=== PATIENT | female | born 1970 | race African-American/Black ===

== ENCOUNTER 2016-11-01 18:26 | Emergency (ER) | payer BC, OTHER ==
--- NOTE | 2016-11-01 19:02 | ER Document Report ---
ED Medical Screen (RME) - General Chief Complaint: Chest Pain Stated Complaint: CHEST PAIN Time Seen by Provider: 11/01/16 18:58 Notes: Patient presents with diffuse body aches and chills. Also has pain and left knee. Also shortness of breath and chest pain. Patient did state that she had a myocardial infarction approximately 1 year ago. No stenting was done but she has been on Plavix since then. She did travel to [place] and [facility] week ago. No previous history of DVT or pulmonary embolism. She has had no hemoptysis. On my evaluation patient's PERC score is 0. TRAVEL OUTSIDE OF THE U.[place]. IN LAST 30 DAYS: No - Related Data Allergies/Adverse Reactions: Penicillins Allergy (Verified 11/01/16 18:52) Past Medical History Pulmonary Medical History: Reports: Hx Asthma Renal/ Medical History: Denies: Hx Peritoneal Dialysis Past Surgical History: Reports: Hx Cardiac Surgery, Hx Section, Hx Oral Surgery, Hx Tubal Ligation - Immunizations Hx Diphtheria, Pertussis, Tetanus Vaccination: Yes Physical Exam - Vital signs Vitals: Temp Pulse Resp BP Pulse Ox 98.3 F 88 18 134/73 H 98 11/01/16 18:50 11/01/16 18:50 11/01/16 18:50 11/01/16 18:50 11/01/16 18:50 Course - Vital Signs Vital signs: Temp Pulse Resp BP Pulse Ox 98.3 F 88 18 134/73 H 98 11/01/16 18:50 11/01/16 18:50 11/01/16 18:50 11/01/16 18:50 11/01/16 18:50
[2016-11-01 19:45] LABS: ABSOLUTE EOSINOPHILS # (AUTO) 0.2 10^3/uL (0.0-0.6); ABSOLUTE LYMPHOCYTES (AUTO) 0.9 10^3/uL (0.5-4.7); ABSOLUTE MONOCYTES (AUTO) 0.2 10^3/uL (0.1-1.4); ABSOLUTE NEUT (AUTO) 2.9 10^3/uL (1.7-8.2); BASOPHILS % (AUTO) 0.5 % (0-2); EOSINOPHILS % (AUTO) 3.6 % (0-6); HEMATOCRIT 36.9 % (36.0-47.0); HEMOGLOBIN 12.5 g/dL (12.0-15.5); HGB HCT DIFFERENCE 0.6; LYMPHOCYTES % (AUTO) 21.9 % (13-45); MEAN CORPUSCULAR HEMOGLOBIN 31.7 pg (27.0-33.4); MEAN CORPUSCULAR VOLUME 93 fl (80-97); MONOCYTES % (AUTO) 5.2 % (3-13); RED BLOOD COUNT 3.95 10^6/uL (3.72-5.28); RED CELL DISTRIBUTION WIDTH 13.1 % (11.5-14.0); SEGMENTED NEUTROPHILS % (AUTO) 68.8 % (42-78); WHITE BLOOD COUNT 4.3 10^3/uL (4.0-10.5)
--- NOTE | 2016-11-01 19:56 | RADIOLOGY REPORT (SQ) ---
EXAM DESCRIPTION: CHEST PA/LAT COMPLETED DATE/TIME: 11/01/2016 7:33 pm REASON FOR STUDY: cp/chills/sob COMPARISON: December 2015 EXAM PARAMETERS: NUMBER OF VIEWS: two views TECHNIQUE: Digital Frontal and Lateral radiographic views of the chest acquired. RADIATION DOSE: NA LIMITATIONS: none FINDINGS: LUNGS AND PLEURA: No opacities, masses or pneumothorax. No pleural effusion. MEDIASTINUM AND HILAR STRUCTURES: No masses or contour abnormalities. HEART AND VASCULAR STRUCTURES: Heart normal size. No evidence for failure. BONES: No acute findings. HARDWARE: None in the chest. OTHER: No other significant finding. IMPRESSION: NO SIGNIFICANT RADIOGRAPHIC FINDING IN THE CHEST. TECHNICAL DOCUMENTATION: JOB ID: [id number] [employer]- All Rights Reserved
[2016-11-01 19:59] LABS: ALANINE AMINOTRANSFERASE 35 U/L (9-52); ALBUMIN 3.9 g/dL (3.5-5.0); ALKALINE PHOSPHATASE 92 U/L (38-126); ANION GAP 11 (5-19); ASPARTATE AMINO TRANSFERASE 24 U/L (14-36); BILIRUBIN,DIRECT 0.3 mg/dL (0.0-0.4); BILIRUBIN,TOTAL 0.4 mg/dL (0.2-1.3); BLOOD UREA NITROGEN 9 mg/dL (7-20); CARBON DIOXIDE 24 mmol/L (22-30); CHLORIDE 104 mmol/L (98-107); CREATININE RESULT 0.98 mg/dL (0.52-1.25); GLUCOSE 80 mg/dL (75-110); SODIUM 139.4 mmol/L (137-145)
[2016-11-01] MEDS ORDERED: ACETAMINOPHEN 325 MG TABLET PO ONE (22:00)
[2016-11-01] MEDS ORDERED: ONDANSETRON 4 MG TAB.RAPDIS PO ONE (22:00)
--- NOTE | 2016-11-01 22:02 | ER Document Report ---
ED General - General Chief Complaint: Chest Pain Stated Complaint: CHEST PAIN Time Seen by Provider: 11/01/16 18:58 Notes: Patient is a 46-year-old female who comes emergency department for chief complaint of chills and body aches since this morning. She also states that she feels like she was "taking deeper breaths" and had some discomfort in her upper chest/neck area which has resolved. She also states she felt helped some tightness in her left calf area yesterday but this has also resolved. She denies vomiting, diarrhea, abdominal pain, throat. She reports mild cough. She states that her granddaughter is sick with a fever and cough and that she sleeps with her. She denies smoking, she does have a past medical history of asthma and an NSTEMI last year. She has also had a tubal ligation. TRAVEL OUTSIDE OF THE [place].S. IN LAST 30 DAYS: No - Related Data Allergies/Adverse Reactions: Penicillins Allergy (Verified 11/01/16 18:52) Past Medical History - General Information source: Patient - Social History Smoking Status: Never Smoker Frequency of alcohol use: None Drug Abuse: None Lives with: Family Family History: DM, Hypertension, Thyroid Disfunction, Other - Patient's grandmother had heart disease and at 83. Patient's fater had congestive heart failure and at 55. Patient has suicidal ideation: No Patient has homicidal ideation: No Pulmonary Medical History: Reports: Hx Asthma Renal/ Medical History: Denies: Hx Peritoneal Dialysis Past Surgical History: Reports: Hx Cardiac Surgery, Hx Section, Hx Oral Surgery, Hx Tubal Ligation - Immunizations Hx Diphtheria, Pertussis, Tetanus Vaccination: Yes Review of Systems - Review of Systems Constitutional: See HPI EENT: No symptoms reported Cardiovascular: See HPI Respiratory: See HPI Gastrointestinal: No symptoms reported Genitourinary: No symptoms reported Female Genitourinary: No symptoms reported Musculoskeletal: See HPI Skin: No symptoms reported Hematologic/Lymphatic: No symptoms reported Neurological/Psychological: No symptoms reported Physical Exam - Vital signs Vitals: Temp Pulse Resp BP Pulse Ox 98.3 F 88 18 134/73 H 98 11/01/16 18:50 11/01/16 18:50 11/01/16 18:50 11/01/16 18:50 11/01/16 18:50 Interpretation: Normal - General General appearance: Appears well, Alert In distress: None - Patient wrapped tightly in a sheet, has occasional shivering but otherwise is in no distress - HEENT Head: Normocephalic, Atraumatic Eyes: Normal Conjunctiva: Normal Extraocular movements intact: Yes Eyelashes: Normal Pupils: PERRL Sinus: Normal Nasal: Normal Mouth/Lips: Normal Mucous membranes: Normal Pharynx: Normal Neck: Normal. No: Meningismus - Respiratory Respiratory status: No respiratory distress Chest status: Nontender Breath sounds: Normal Chest palpation: Normal - Cardiovascular Rhythm: Regular. No: Tachycardia Heart sounds: Normal auscultation, S1 appreciated, S2 appreciated Murmur: No - Abdominal Inspection: Normal Distension: No distension Bowel sounds: Normal Tenderness: Nontender. No: Tender, Guarding Organomegaly: No organomegaly - Back Back: Normal, Nontender. No: Tender, CVA tenderness - Extremities General upper extremity: Normal inspection, Nontender, Normal color, Normal ROM , Normal temperature General lower extremity: Normal inspection, Nontender, Normal color, Normal ROM , Normal temperature, Normal weight bearing. No: Edouard's sign - Neurological Neuro grossly intact: Yes Cognition: Normal Orientation: AAOx4 [place] Coma Scale Eye Opening: Spontaneous [place] Coma Scale Verbal: Oriented [place] Coma Scale Motor: Obeys Commands [place] Coma Scale Total: 15 Speech: Normal Cranial nerves: Normal Cerebellar coordination: Normal Motor strength normal: LUE, RUE, LLE, RLE Additional motor exam normals: Equal painter Sensory: Normal - Psychological Associated symptoms: Normal affect, Normal mood - Skin Skin Temperature: Warm Skin Moisture: Dry Skin Color: Normal Course - Re-evaluation Re-evalutation: Patient well-appearing on exam although she appears slightly under the weather with body aches and occasional chills. Nontoxic. Clear lungs, unremarkable vital signs. No nuchal rigidity. After Tylenol and Zofran patient no longer complaining of body aches or headache, she states she just feels tired. X-ray unremarkable, CBC, chemistry, cardiac enzymes negative. EKG with no concerning abnormalities. Workup and symptoms consistent with a viral illness. Patient is asking to leave. Patient also asks that if she worsens or continues to be sick if she can have an antibiotic. I did discuss this with patient, I did eventually agree to prescribe her something that if she continues to have symptoms, has worsening cough, that she can take the prescribed medication and follow-up with primary care, also discussed return precautions in detail. Very low suspicion of acute abnormality including pneumonia, ACS, meningitis, or pulmonary embolism. I discussed this with patient and family member, they state understanding and agreement. - Vital Signs Vital signs: Temp Pulse Resp BP Pulse Ox 99.4 F 83 18 107/54 L 97 11/01/16 23:15 11/01/16 23:15 11/01/16 23:15 11/01/16 23:15 11/01/16 23:15 - Laboratory Result Diagrams: 11/01/16 19:20 11/01/16 19:20 Discharge - Discharge Clinical Impression: Body aches, Chills Condition: Stable Disposition: HOME, SELF-CARE Additional Instructions: Your chest x-ray and workup did not show any concerning abnormalities. Your symptoms and exam are most consistent with a viral illness. As we discussed I recommend not taking the antibiotics for 2-3 days and not taking it at all if symptoms resolve. Rest, hydrate, take Tylenol or ibuprofen. Follow-up with primary care. Return to emergency department for any concerning or worsening symptoms including difficulty breathing, severe headache, etc. Prescriptions: Doxycycline Hyclate 100 mg PO BID #14 capsule Forms: Return to Work Referrals: STEFANO ELLISON MD [Primary Care Provider] - Follow up as needed
[2016-11-01 22:26] LABS: APPEARANCE,URINE CLEAR; BILIRUBIN,URINE NEGATIVE (NEGATIVE); GLUCOSE, URINE NEGATIVE (NEGATIVE); KETONES,URINE NEGATIVE (NEGATIVE); LEUKOCYTE ESTERASE,URINE NEGATIVE (NEGATIVE); NITRITE,URINE NEGATIVE (NEGATIVE); PROTEIN,URINE NEGATIVE (NEGATIVE); URINE SPECIFIC GRAVITY 1.012; UROBILINOGEN,URINE NEGATIVE mg/dL (<2.0)
[2016-11-01 23:51] VITALS: BP 107/54
--- NOTE | 2016-11-02 17:37 | EKG REPORT ---
SEVERITY:- NORMAL ECG - SINUS RHYTHM : Confirmed by: Concetta Mcclendon MD 02-Nov-2016 17:37:00
== END 2016-11-01 23:15 | disposition home or self-care (01) ==
LOC: ER 18:26
DX: R52 Pain, unspecified (principal); R68.83 Chills (without fever); R07.9 Chest pain, unspecified; M54.2 Cervicalgia
CPT/HCPCS: 93005; 99285; 36415; 85025; 81025; 80053; 81001; 84484; 71020; 93010; S0119

== ENCOUNTER → 2018-08-21 | Outpatient (CLI) | payer BC, OTHER ==
--- NOTE | 2018-08-21 14:51 | RADIOLOGY REPORT (SQ) ---
EXAM DESCRIPTION: VENOUS UNILATERAL UPPER COMPLETED DATE/TIME: 08/21/2018 2:40 pm REASON FOR STUDY: LUE SWELLING R78.89 FINDING OF OTH SUBSTANCES, NOT NORMALLY FOUND IN BLOO R22.32 LOCALIZED SWELLING, MASS AND LUMP, LEFT UPPER LIMB COMPARISON: None. TECHNIQUE: Dynamic and static sarmiento scale and color images acquired of the left arm venous system. Se lected spectral images acquired with additional compression and augmentation maneuvers. Images store d on PACS. LIMITATIONS: None. FINDINGS: LEFT INTERNAL JUGULAR VEIN: Normal phasicity, compression, augmentation. No visualized echogenic material on sarmiento scale. No defects on color images. Comparison opposite side normal. SUBCLAVIAN VEIN: Normal compression, augmentation. No visualized echogenic material on sarmiento scale. No defects on color images. AXILLARY VEIN: Normal compression, augmentation. No visualized echogenic material on sarmiento scale. No d efects on color images. BRACHIAL VEIN: Normal compression, augmentation. No visualized echogenic material on sarmiento scale. No d efects on color images. BASILIC VEIN: Normal compression, augmentation. No visualized echogenic material on sarmiento scale. No de fects on color images. CEPHALIC VEIN: Normal compression, augmentation. No visualized echogenic material on sarmiento scale. No d efects on color images. OTHER: No other significant finding. IMPRESSION: NO EVIDENCE DVT OR SVT LEFT ARM. TECHNICAL DOCUMENTATION: JOB ID: [id number] [employer]- All Rights Reserved Reading location - IP/workstation name: [email or web address]
== END ==
LOC: SP 13:47
PROVIDERS: ATTEND Internal Medicine
DX: M79.89 Other specified soft tissue disorders (principal)
CPT/HCPCS: 93971

== ENCOUNTER 2018-11-06 16:02 | Observation (INO) | payer OTHER ==
[2018-11-06] MEDS ORDERED: ASPIRIN 81 MG TABLET, CHEWABLE PO ONE (16:36)
--- NOTE | 2018-11-06 16:36 | ER Document Report ---
Addendum entered and electronically signed by LUIZ BELTRAN PA-C 11/06/18 16:39: ED Medical Screen (RME) - General Chief Complaint: Chest Pain > 30 Stated Complaint: CHEST PAIN Time Seen by Provider: 11/06/18 16:37 Primary Care Provider: GABRIELA JETER [NO LOCAL MD] - Follow up as needed Notes: I have greeted and performed a rapid initial assessment of this patient. A comprehensive ED assessment and evaluation of the patient, analysis of test results and completion of medical decision making process will be conducted by an additional ED providers. TRAVEL OUTSIDE OF THE [place]. IN LAST 30 DAYS: No - Related Data Allergies/Adverse Reactions: Penicillins Allergy (Verified 11/06/18 16:08) Original Note: ED Medical Screen (RME) - General Chief Complaint: Chest Pain > 30 Stated Complaint: CHEST PAIN Primary Care Provider: GABRIELA JETER [Primary Care Provider] - Follow up as needed Notes: 48-year-old female with history of non-STEMI in December 2015 who received catheterization with no stent placement presents to the emergency department with chief complaint of chest pain and tightness that started yesterday. She had associated nausea and diaphoresis last night but decided not to come to the emergency department. She went to work today and has had persistent chest pain described as tightness/heaviness with dyspnea on exertion and that prompted her to get seen. Symptoms are similar to her previous ACS but not as severe. Pain radiates in between her shoulder blades and is constant and currently present. Patient takes ASA 81 mg, last dose this morning and is no longer taking Plavix. 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 TRAVEL OUTSIDE OF THE [place]. IN LAST 30 DAYS: No - Related Data Allergies/Adverse Reactions: Penicillins Allergy (Verified 11/06/18 16:08) Past Medical History - Social History Chew tobacco use (# tins/day): No Frequency of alcohol use: None Drug Abuse: None - Past Medical History Cardiac Medical History: Reports: Hx Heart Attack - 12/19/2015, Hx Hypercholesterolemia, Hx Hypertension Pulmonary Medical History: Reports: Hx Asthma Renal/ Medical History: Denies: Hx Peritoneal Dialysis Past Surgical History: Reports: Hx Cardiac Surgery, Hx Section, Hx Oral Surgery, Hx Tubal Ligation, Other - facial plastic surgery - Immunizations Hx Diphtheria, Pertussis, Tetanus Vaccination: Yes Physical Exam - Vital signs Vitals: Temp Pulse Resp BP Pulse Ox 98.3 F 84 16 122/78 100 11/06/18 16:20 11/06/18 16:20 11/06/18 16:20 11/06/18 16:20 11/06/18 16:20 - Notes Notes: PHYSICAL EXAMINATION: Reviewed vital signs and charting by RN GENERAL: Alert, interacts well. No acute distress. HEAD: Normocephalic, atraumatic. EYES: Pupils equal and round. Extraocular movements intact. ENT: Oral mucosa moist, tongue midline. NECK: Full range of motion. Trachea midline. LUNGS: Clear to auscultation bilaterally, no wheezes, rales, or rhonchi. No respiratory distress. HEART: Regular rate and rhythm. No murmur ABDOMEN: Deferred in triage EXTREMITIES: Moves all 4 extremities spontaneously. No edema, No cyanosis. PSYCH: Normal affect, normal mood. SKIN: Warm, dry, normal turgor. No rashes or lesions noted. Course - Vital Signs Vital signs: Temp Pulse Resp BP Pulse Ox 98.3 F 84 16 122/78 100 11/06/18 16:20 11/06/18 16:20 11/06/18 16:20 11/06/18 16:20 11/06/18 16:20 Doctor's Discharge - Discharge Referrals: LOCALMD,NO [Primary Care Provider] - Follow up as needed
[2018-11-06 17:16] LABS: ABSOLUTE BASOPHILS # (AUTO) 0.1 10^3/uL (0.0-0.2); ABSOLUTE EOSINOPHILS # (AUTO) 0.2 10^3/uL (0.0-0.6); ABSOLUTE LYMPHOCYTES (AUTO) 2.3 10^3/uL (0.5-4.7); ABSOLUTE MONOCYTES (AUTO) 0.5 10^3/uL (0.1-1.4); ABSOLUTE NEUT (AUTO) 2.4 10^3/uL (1.7-8.2); EOSINOPHILS % (AUTO) 4.3 % (0-6); HEMATOCRIT 37.5 % (36.0-47.0); HEMOGLOBIN 12.5 g/dL (12.0-15.5); LYMPHOCYTES % (AUTO) 42.2 % (13-45); MEAN CORPUSCULAR HEMOGLOBIN 31.1 pg (27.0-33.4); MEAN CORPUSCULAR HGB CONC 33.4 g/dL (32.0-36.0); MEAN CORPUSCULAR VOLUME 93 fl (80-97); MONOCYTES % (AUTO) 8.7 % (3-13); PLATELET COUNT 266 10^3/uL (150-450); RED BLOOD COUNT 4.03 10^6/uL (3.72-5.28); RED CELL DISTRIBUTION WIDTH 13.3 % (11.5-14.0); SEGMENTED NEUTROPHILS % (AUTO) 43.8 % (42-78); TOTAL CELLS COUNTED % (AUTO) 100 %; WHITE BLOOD COUNT 5.4 10^3/uL (4.0-10.5)
--- NOTE | 2018-11-06 17:18 | RADIOLOGY REPORT (SQ) ---
EXAM DESCRIPTION: CHEST 2 VIEWS COMPLETED DATE/TIME: 11/06/2018 5:07 pm REASON FOR STUDY: Chest pain/dyspnea on exertion COMPARISON: 11/01/2016 EXAM PARAMETERS: NUMBER OF VIEWS: two views TECHNIQUE: Digital Frontal and Lateral radiographic views of the chest acquired. RADIATION DOSE: NA LIMITATIONS: none FINDINGS: LUNGS AND PLEURA: No opacities, masses or pneumothorax. No pleural effusion. MEDIASTINUM AND HILAR STRUCTURES: No masses or contour abnormalities. HEART AND VASCULAR STRUCTURES: Heart normal size. No evidence for failure. BONES: No acute findings. HARDWARE: None in the chest. OTHER: No other significant finding. IMPRESSION: 1. No significant interval changes since the prior examination dated 11/01/2016. No acu te findings. TECHNICAL DOCUMENTATION: JOB ID: [id number] [employer]- All Rights Reserved Reading location - IP/workstation name: [email or web address]
[2018-11-06 17:33] LABS: ALANINE AMINOTRANSFERASE 33 U/L (9-52); ALBUMIN 4.2 g/dL (3.5-5.0); ALKALINE PHOSPHATASE 102 U/L (38-126); ANION GAP 8 (5-19); ASPARTATE AMINO TRANSFERASE 28 U/L (14-36); BILIRUBIN,DIRECT 0.2 mg/dL (0.0-0.4); BILIRUBIN,TOTAL 0.3 mg/dL (0.2-1.3); BLOOD UREA NITROGEN 11 mg/dL (7-20); CALCIUM 9.2 mg/dL (8.4-10.2); CARBON DIOXIDE 30 mmol/L (22-30); CHLORIDE 103 mmol/L (98-107); GLUCOSE 88 mg/dL (75-110); POTASSIUM 4.1 mmol/L (3.6-5.0); TOTAL PROTEIN 7.8 g/dL (6.3-8.2)
--- NOTE | 2018-11-06 17:40 | ER Document Report ---
ED General - General Mode of Arrival: Ambulatory Information source: Patient TRAVEL OUTSIDE OF THE U.S. IN LAST 30 DAYS: No - HPI Onset: Yesterday Onset/Duration: Sudden, Waxing and waning Quality of pain: No pain, Sharp, Other - heavy Associated symptoms: Nausea, Shortness of breath Exacerbated by: Denies Relieved by: Denies Similar symptoms previously: Yes Recently seen / treated by doctor: No <BILLY MACIAS - Last Filed: 11/06/18 20:04> <ANYA HUNT - Last Filed: 11/07/18 06:34> - General Chief Complaint: Chest Pain > 30 Stated Complaint: CHEST PAIN Time Seen by Provider: 11/06/18 16:37 Notes: This 48-year female presents emergency department with reports that she has some chest pain that was midsternal radiating to her back down her left arm making her left hand numb. She reports symptoms started last night when she was just sitting there. She reports she did become short of breath and some nausea. She reports she woke up she had been sweating in her sleep. Patient reports today when she was at work she became increasing tired and she was very sweaty. She also reports intermittent periods of chest pain that are sharp and alternating with heaviness that comes and goes. 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 Patient has a history of cardiac disease reports she had a ME in 2016. Her industrial rehabilitation consultant is [place] primary care providers at [facility]. She denies fever or diarrhea. 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 Patient's fater had congestive heart failure and at 55. Patient has suicidal ideation: No Patient has homicidal ideation: No - Past Medical History Cardiac Medical History: Reports: Hx Heart Attack - 12/19/2015, Hx Hy percholesterolemia, Hx Hypertension Pulmonary Medical History: Reports: Hx Asthma Renal/ Medical History: Denies: Hx Peritoneal Dialysis Musculoskeletal Medical History: Reports Other - Carpal tunnel Past Surgical History: Reports: Hx Cardiac Surgery, Hx Section, Hx Oral Surgery, Hx Tubal Ligation, Other - facial plastic surgery - Immunizations Hx Diphtheria, Pertussis, Tetanus Vaccination: Yes <BILLY MACIAS - Last Filed: 11/06/18 20:04> Review of Systems <BILLY MACIAS - Last Filed: 11/06/18 20:04> - Review of Systems Notes: Review HPI for review of systems., All other systems negative (BILLY MACIAS) Physical Exam - General General appearance: Appears well, Alert In distress: None - HEENT Head: Normocephalic, Atraumatic Eyes: Normal Conjunctiva: Normal Neck: Normal, Supple. No: Posterior cervical chain, Lymphadenopathy - Respiratory Respiratory status: No respiratory distress Chest status: Nontender Breath sounds: Normal Chest palpation: Normal - Cardiovascular Rhythm: Regular Heart sounds: Normal auscultation Murmur: No - Abdominal Inspection: Normal Distension: No distension Bowel sounds: Normal Tenderness: Nontender Organomegaly: No organomegaly - Back Back: Normal, Nontender - Extremities General upper extremity: Normal ROM General lower extremity: Normal ROM - Neurological Neuro grossly intact: Yes Cognition: Normal Orientation: AAOx4 [place] Coma Scale Eye Opening: Spontaneous [place] Coma Scale Verbal: Oriented [place] Coma Scale Motor: Obeys Commands [place] Coma Scale Total: 15 Speech: Normal Sensory: Normal - Psychological Associated symptoms: Normal affect, Normal mood - Skin Skin Temperature: Warm Skin Moisture: Dry Skin Color: Normal <BILLY MACIAS - Last Filed: 11/06/18 20:04> - Vital signs Vitals: Temp Pulse Resp BP Pulse Ox 98.3 F 84 16 122/78 100 11/06/18 16:20 11/06/18 16:20 11/06/18 16:20 11/06/18 16:20 11/06/18 16:20 Course - Laboratory Result Diagrams: 11/06/18 16:57 11/06/18 16:57 - Diagnostic Test Radiology reviewed: Image reviewed, Reports reviewed - EKG Interpretation by Me EKG shows normal: Sinus rhythm Rate: Normal <BILLY MACIAS - Last Filed: 11/06/18 20:04> - Laboratory Result Diagrams: 11/06/18 16:57 11/06/18 16:57 <ANYA HUNT - Last Filed: 11/07/18 06:34> - Re-evaluation Re-evalutation: 11/06/18 19:12 This 48-year-old -[place] female with history of cardiac disease and ME presents today with reports of chest pain midsternal that radiated to her back. Ports that occurred while she was just sitting there last night. Today while she was at work as a digital computer operator at [id number] she noticed she was increased tired and she was sweating. She reports sharp chest pain radiates to her back with a heaviness feeling that comes and goes. Reports she felt a little bit nauseated last night and some shortness of breath. She denies fever diarrhea or trauma. She denies coughing. Denies chest pain at this time and she was informed if she stood started experience chest pain she is to it the call campuzano so we can get another EKG. She verbalized understanding. Patient reports she did have a cardiac cath done after she had her ME in 2015. She had a recent stress test done in May 2018 which was normal. 11/06/18 19:16 First Set of enzymes troponin negative. Chest x-ray negative. Will repeat second troponin at 1999. Patient denies chest pain. Chest X-Ray 11/06/18 16:36 IMPRESSION: 1. No significant interval changes since the prior examination dated 11/01/2016. No acute findings. 11/06/18 16:57 11/06/18 16:57 MCV 93 fl (80-97) 11/06/18 16:57 MCH 31.1 pg (27.0-33.4) 11/06/18 16:57 MCHC 33.4 g/dL (32.0-36.0) 11/06/18 16:57 RDW 13.3 % (11.5-14.0) 11/06/18 16:57 Seg Neutrophils % 43.8 % (42-78) 11/06/18 16:57 Lymphocytes % 42.2 % (13-45) 11/06/18 16:57 Monocytes % 8.7 % (3-13) 11/06/18 16:57 Eosinophils % 4.3 % (0-6) 11/06/18 16:57 Basophils % 1.0 % (0-2) 11/06/18 16:57 Absolute Neutrophils 2.4 10^3/uL (1.7-8.2) 11/06/18 16:57 Absolute Lymphocytes 2.3 10^3/uL (0.5-4.7) 11/06/18 16:57 Absolute Monocytes 0.5 10^3/uL (0.1-1.4) 11/06/18 16:57 Absolute Eosinophils 0.2 10^3/uL (0.0-0.6) 11/06/18 16:57 Absolute Basophils 0.1 10^3/uL (0.0-0.2) 11/06/18 16:57 Chloride 103 mmol/L (98-107) 11/06/18 16:57 Carbon Dioxide 30 mmol/L (22-30) 11/06/18 16:57 Anion Gap 8 (5-19) 11/06/18 16:57 Est GFR ( Amer) > 60 (>60) 11/06/18 16:57 Est GFR (Non-Af Amer) > 60 (>60) 11/06/18 16:57 Glucose 88 mg/dL (75-110) 11/06/18 16:57 Calcium 9.2 mg/dL (8.4-10.2) 11/06/18 16:57 Total Bilirubin 0.3 mg/dL (0.2-1.3) 11/06/18 16:57 AST 28 U/L (14-36) 11/06/18 16:57 ALT 33 U/L (9-52) 11/06/18 16:57 Alkaline Phosphatase 102 U/L (38-126) 11/06/18 16:57 Total Protein 7.8 g/dL (6.3-8.2) 11/06/18 16:57 Albumin 4.2 g/dL (3.5-5.0) 11/06/18 16:57 11/06/18 16:57 Troponin I < 0.012 11/06/18 19:25 Patient resting calmly with 2 visitors at her bedside. Denies chest pain. 11/06/18 20:04 Report given to Anya OCONNOR. Introduced to Anya. She still having chest pain nitro ordered. Anticipate transfer to [place] to the care of her industrial rehabilitation consultant Dr. Rosenberg. (BILLY MACIAS) 11/06/18 20:05 Received report from ELVIN Pa. We will follow-up on second troponin. Will order nitroglycerin to help with her chest pain since her chest pain returned. 11/06/18 21:20 Patient states that the nitro had been brought down her pain, but she still continues to have some pain. 11/06/18 21:46 I spoke with the transfer center at [facility] and they will give me a call back. 11/06/18 22:[address] Valencia from [facility]. She said that there are no beds at this time and is recommending she gets worked up here at [facility]. She also stated that the cast that was done in 2016 did not show any large vessel blockage. Dr. Valencia states that the patient is most likely having small vessel occlusions. I will contact Dr. Huntley. 11/06/18 22:[address] Huntley and he is asking me to consult Dr. Mcclendon. 11/06/18 22:[address] Mcclendon and I reassessed the patient. Patient's pain is not reproducible with palpation. He is recommending observation on the telemetry unit at this time. (ANYA HUNT) - Vital Signs Vital signs: Temp Pulse Resp BP Pulse Ox 97.7 F 63 20 115/60 96 11/07/18 03:06 11/07/18 03:06 11/07/18 03:06 11/07/18 03:06 11/07/18 03:06 - EKG Interpretation by Me Additional EKG results interpreted by me: 11/06/18 19:[address] elevation no T wave inversion (BILLY MACIAS) Discharge <BILLY MACIAS - Last Filed: 11/06/18 20:04> - Discharge Admitting Provider: Audi (Hospitalist) <ANYA HUNT - Last Filed: 11/07/18 06:34> - Discharge Clinical Impression: Chest pain Qualifiers: Chest pain type: unspecified Qualified Code(s): R07.9 - Chest pain, unspecified Condition: Stable Disposition: ADMITTED OBSERVATION
[2018-11-06 19:34] LABS: INTERNATIONAL RATION (INR) 0.96; PARTIAL THROMBOPLASTIN TIME 23.5 SEC (23.5-35.8); PROTHROMBIN TIME 12.8 SEC (11.4-15.4)
[2018-11-06] MEDS: NITROGLYCERIN 0.4 MG/TAB 25 TAB/BOTTLE SL PRN ×2 (20:10→20:15)
[2018-11-06] MEDS ORDERED: ACETAMINOPHEN 325 MG TABLET PO ONE (20:36)
[2018-11-06] MEDS ORDERED: ACETAMINOPHEN 325 MG TABLET PO PRN (22:55)
[2018-11-06] MEDS ORDERED: NITROGLYCERIN 0.4 MG/TAB 25 TAB/BOTTLE SL PRN (22:55)
[2018-11-06] MEDS ORDERED: LACTULOSE SYRUP 20 GM/30 ML UDCUP PO ONE (23:30)
[2018-11-06] MEDS ORDERED: AMLODIPINE BESYLATE 10 MG TABLET PO ONE (23:30)
[2018-11-06] MEDS ORDERED: ATORVASTATIN CALCIUM 40 MG TABLET PO ONE (23:30)
--- NOTE | 2018-11-07 05:12 | PDOC H&P ---
History of Present Illness Admission Date/PCP: 11/06/18 23:04 Patient complains of: Chest pain History of Present Illness: CRISTINA NUNEZ is a 48 year old female with a past medical history of hypertension, dyslipidemia, patient stated stress-induced non-ST elevation CT without coronary artery disease. Patient states most recent stress testing 05/2018 with normal result by tank farm gauger Dr. Rosenberg at [facility] in [place]. Nonetheless the patient presents with 2 days of sharp, intermittent, lasting 3 to 5 minutes, 3 out of 5 intensity, radiating to the back, Chest pain occurring while at rest associated with fatigue, nausea, shortness of breath and elen phoresis. Exacerbated by activity alleviated by rest and nitroglycerin. Work- up is unremarkable, patient's tank farm gauger recommends observation with serial cardiac enzymes. On exam patient denies recent change in medication regiment and is otherwise felt well. Patient has a reproducible anterior chest wall pain is the pain for which she seeks evaluation. Past Medical History Cardiac Medical History: Reports: Myocardial Infarction - 12/19/2015, Hyperlipid isac, Hypertension Pulmonary Medical History: Reports: Asthma Musculoskeltal Medical History: Reports: Other - Carpal tunnel Psychiatric Medical History: Denies: Depression, Tobacco Dependency Past Surgical History Past Surgical History: Reports: Section, Tubal Ligation, Other - facial plastic surgery Social History Information Source: Patient, Dr. Office Lives with: Family Smoking Status: Never Smoker Frequency of Alcohol Use: None Hx Recreational Drug Use: No Drugs: None Hx Prescription Drug Abuse: No - Advance Directive Resuscitation Status: Full Code Family History Family History: DM, Hypertension, Thyroid Disfunction, Other - Patient's grandmother had heart disease and at 83. Patient's fater had congestive heart failure and at 55. Parental Family History Reviewed: Yes Children Family History Reviewed: Yes Sibling(s) Family History Reviewed.: Yes Medication/Allergy Home Medications: Aspirin [Aspirin 81 mg Chewable Tablet] 81 mg PO DAILY 11/06/18 Atorvastatin Calcium [Lipitor 80 mg Tablet] 80 mg PO QHS 11/06/18 Cetirizine HCl [Zyrtec 10 mg Tablet] 1 tab PO DAILY 11/06/18 Metoprolol Tartrate [Lopressor 25 mg Tablet] 12.5 mg PO BID 11/06/18 Pantoprazole Sodium 40 mg PO DAILY 11/06/18 Allergies/Adverse Reactions: Penicillins Allergy (Verified 11/06/18 16:08) Review of Systems Constitutional: ABSENT: chills, fever(s), headache(s), weight gain, weight loss Eyes: ABSENT: visual disturbances Ears: ABSENT: hearing changes Cardiovascular: ABSENT: chest pain, dyspnea on exertion, edema, orthropnea, palpitations Respiratory: ABSENT: cough, hemoptysis Gastrointestinal: ABSENT: abdominal pain, constipation, diarrhea, hematemesis, hematochezia, nausea, vomiting Genitourinary: ABSENT: dysuria, hematuria Musculoskeletal: ABSENT: joint swelling Integumentary: ABSENT: rash, wounds Neurological: ABSENT: abnormal gait, abnormal speech, confusion, dizziness, focal weakness, syncope Psychiatric: ABSENT: anxiety, depression, homidical ideation, suicidal ideation Endocrine: ABSENT: cold intolerance, heat intolerance, polydipsia, polyuria Hematologic/Lymphatic: ABSENT: easy bleeding, easy bruising Physical Exam Vital Signs: Temp Pulse Resp BP Pulse Ox 97.7 F 63 20 115/60 96 11/07/18 03:06 11/07/18 03:06 11/07/18 03:06 11/07/18 03:06 11/07/18 03:06 Intake & Output 11/05/18 11/06/18 11/07/18 11:59 11:59 11:59 Weight 85.1 kg General appearance: PRESENT: no acute distress, cooperative, obese, well- developed, well-nourished Head exam: PRESENT: atraumatic, normocephalic Eye exam: PRESENT: conjunctiva pink, EOMI, PERRLA. ABSENT: scleral icterus Ear exam: PRESENT: normal external ear exam Mouth exam: PRESENT: moist, tongue midline Neck exam: ABSENT: carotid bruit, JVD, lymphadenopathy, thyromegaly Respiratory exam: PRESENT: clear to auscultation rivas. ABSENT: rales, rhonchi, wheezes Cardiovascular exam: PRESENT: RRR. ABSENT: diastolic murmur, rubs, systolic murmur Pulses: PRESENT: normal dorsalis pedis pul Vascular exam: PRESENT: normal capillary refill GI/Abdominal exam: PRESENT: normal bowel sounds, soft. ABSENT: distended, guarding, mass, organolmegaly, rebound, tenderness Torso Front/Back Image: 1 - Reproducible chest wall pain to palpation Rectal exam: PRESENT: deferred Extremities exam: PRESENT: full ROM. ABSENT: calf tenderness, clubbing, pedal edema Neurological exam: PRESENT: alert, awake, oriented to person, oriented to place, oriented to time, oriented to situation, CN II-XII grossly intact. ABSENT: motor sensory deficit Psychiatric exam: PRESENT: appropriate affect, normal mood. ABSENT: homicidal ideation, suicidal ideation Skin exam: PRESENT: dry, intact, warm. ABSENT: cyanosis, rash Results Laboratory Results: 11/06/18 16:57 11/06/18 16:57 11/06/18 11/06/18 16:57 16:57 WBC 5.4 RBC 4.03 Hgb 12.5 Hct 37.5 MCV 93 MCH 31.1 MCHC 33.4 RDW 13.3 Plt Count 266 Seg Neutrophils % 43.8 Lymphocytes % 42.2 Monocytes % 8.7 Eosinophils % 4.3 Basophils % 1.0 Absolute Neutrophils 2.4 Absolute Lymphocytes 2.3 Absolute Monocytes 0.5 Absolute Eosinophils 0.2 Absolute Basophils 0.1 Sodium 141.0 Potassium 4.1 Chloride 103 Carbon Dioxide 30 Anion Gap 8 BUN 11 Creatinine 0.92 Est GFR ( Amer) > 60 Est GFR (Non-Af Amer) > 60 Glucose 88 Calcium 9.2 Total Bilirubin 0.3 AST 28 ALT 33 Alkaline Phosphatase 102 Total Protein 7.8 Albumin 4.2 11/06/18 11/06/18 11/07/18 16:57 19:55 02:13 Troponin I < 0.012 < 0.012 < 0.012 Impressions: Chest X-Ray 11/06/18 16:36 IMPRESSION: 1. No significant interval changes since the prior examination dated 11/01/2016. No acute findings. Assessment and Plan - Diagnosis (1) Atypical chest pain Is this a current diagnosis for this admission?: Yes Plan: Atypical chest pain though the patient's pain is atypical there are multiple risk factors for coronary artery disease and subsequently will observe and evaluation of acute coronary syndrome versus coronary artery disease with anginal equivalents. Cardiac monitoring blood pressure Q6 hours ,TSH, lipid profile, serial cardiac enzymes and discussion with patient's tank farm gauger. Chest wall pain, symptomatic management Tylenol and rest. (2) Dyslipidemia Is this a current diagnosis for this admission?: Yes Plan: Lipitor ordered, follow-up lipid profile. - Time Time Spent with patient: 25-34 minutes
[2018-11-07] MEDS ORDERED: PANTOPRAZOLE SODIUM 40 MG TABLET.DR PO SCH (06:00)
[2018-11-07] MEDS ORDERED: AMLODIPINE BESYLATE 5 MG TABLET PO SCH (10:00)
[2018-11-07] MEDS ORDERED: ASPIRIN 81 MG TABLET, ENT COATED PO SCH (10:00)
[2018-11-07] MEDS ORDERED: METOPROLOL TARTRATE 25 MG TABLET PO SCH (10:00)
--- NOTE | 2018-11-07 11:06 | RADIOLOGY REPORT (SQ) ---
EXAM DESCRIPTION: U/S ABDOMEN COMPLETE W/O DOP COMPLETED DATE/TIME: 11/07/2018 10:49 am REASON FOR STUDY: assess for GB stones COMPARISON: None. TECHNIQUE: Dynamic and static grayscale images acquired of the abdomen and recorded on PACS. Additio nal selected color Doppler and spectral images recorded. Note: Study does not meet criteria for complete doppler/duplex scan LIMITATIONS: None. FINDINGS: PANCREAS: No masses. Visualized pancreatic duct normal caliber. LIVER: No masses. Echotexture normal. LIVER VASCULATURE: Normal directional flow of the main portal vein and hepatic veins. GALLBLADDER: No stones. Normal wall thickness. No pericholecystic fluid. ULTRASOUND-DETECTED BERNABE'S SIGN: Negative. INTRAHEPATIC DUCTS AND COMMON DUCT: CBD and intrahepatic ducts normal caliber. No filling defects. INFERIOR VENA CAVA: Normal flow. AORTA: No aneurysm. RIGHT KIDNEY: Normal size. Normal echogenicity. No solid or suspicious masses. No hydronephros is. No calcifications. LEFT KIDNEY: Normal size. Normal echogenicity. No solid or suspicious masses. No hydronephrosi s. No calcifications. There is a small cyst off the superior pole. Largest diameter is 2.2 cm. SPLEEN: Normal size. No solid masses. PERITONEAL AND PLEURAL SPACES: No ascites or effusions. OTHER: No other significant finding. IMPRESSION: Small left renal cyst. No other significant findings. TECHNICAL DOCUMENTATION: JOB ID: [id number] [employer]- All Rights Reserved Reading location - IP/workstation name: [email or web address]
[2018-11-07 13:03] LABS: FREE T3 4.25 pg/mL (2.77-5.27); FREE T4 (FREE THYROXINE) 1.13 ng/dL (0.78-2.19)
[2018-11-07 15:48] VITALS: BP 121/68
--- NOTE | 2018-11-07 17:47 | PDOC DISCHARGE SUMMARY ---
General - Admit/Disc Date/PCP Admission Date/Primary Care Provider: 11/06/18 23:04 Discharge Date: 11/07/18 - Discharge Diagnosis (1) Chest pain Is this a current diagnosis for this admission?: Yes (2) Dyslipidemia Is this a current diagnosis for this admission?: Yes (3) Asthma Is this a current diagnosis for this admission?: Yes - Additional Information Resuscitation Status: Full Code Discharge Diet: As Tolerated Discharge Activity: Activity As Tolerated, Balance Activity w/Rest Prescriptions: Amlodipine Besylate [Norvasc 5 mg Tablet] 5 mg PO DAILY #30 tablet Home Medications: Atorvastatin Calcium [Lipitor 80 mg Tablet] 80 mg PO QHS 11/06/18 Cetirizine HCl [Zyrtec 10 mg Tablet] 1 tab PO DAILYP PRN 11/06/18 Metoprolol Tartrate [Lopressor 25 mg Tablet] 12.5 mg PO BID 11/06/18 Pantoprazole Sodium 40 mg PO DAILY 11/06/18 Amlodipine Besylate [Norvasc 5 mg Tablet] 5 mg PO DAILY #30 tablet 11/07/18 Aspirin [Ecotrin 81 mg EC Tablet] 81 mg PO DAILY 11/07/18 History of Present Illness History of Present Illness: Admitting hospitalist's H&P: CRISTINA NUNEZ is a 48 year old female with a past medical history of hypertension, dyslipidemia, patient stated stress-induced non-ST elevation [place] without coronary artery disease. Patient states most recent stress testing 05/2018 with normal result by binder coverstitch Dr. Rosenberg at [facility] in [place]. Nonetheless the patient presents with 2 days of sharp, intermittent, lasting 3 to 5 minutes, 3 out of 5 intensity, radiating to the back, Chest pain occurring while at rest associated with fatigue, nausea, shortness of breath and diaphoresis. Exacerbated by activity alleviated by rest and nitroglycerin. Work-up is unremarkable, patient's binder coverstitch recommends observation with serial cardiac enzymes. On exam patient denies recent change in medication regiment and is otherwise felt well. Patient has a reproducible anterior chest wall pain is the pain for which she seeks evaluation. Hospital Course Hospital Course: This is a 58-year-old female who was admitted for chest pain. Patient had normal EKGs. Her troponins were cycled and were all negative x4. She had a complete normal cardiac cath in 2015. She had a recent stress testing in May which was also normal. Upon encounter, she has been chest pain-free. She says that the chest pain is midsternal and sharp. D-dimer was also checked and came back normal. Her chest x-ray was also normal. An abdominal ultrasound was also pursued to rule out hepatobiliary causes of chest pain and this came back unremarkable as well. Other differentials are Prinzmetal variant and GI causes. Will discharge patient on amlodipine. She is already on PPI. She will be also referred for outpatient GI appointment to pursue work-up for GI causes of her chest pain. She will also closely follow-up with her binder coverstitch. Physical Exam Vital Signs: Temp Pulse Resp BP Pulse Ox 97.9 F 82 18 121/68 94 11/07/18 15:45 11/07/18 15:45 11/07/18 15:45 11/07/18 15:45 11/07/18 15:45 Intake & Output 11/06/18 11/07/18 11/08/18 06:59 06:59 06:59 Intake Total 240 Output Total 0 Balance 0 240 Weight 187 lb 6.287 oz General appearance: PRESENT: no acute distress, well-developed, well-nourished Head exam: PRESENT: atraumatic, normocephalic Eye exam: PRESENT: conjunctiva pink, EOMI, PERRLA. ABSENT: scleral icterus Ear exam: PRESENT: normal external ear exam Mouth exam: PRESENT: moist, tongue midline Neck exam: ABSENT: carotid bruit, JVD, lymphadenopathy, thyromegaly Respiratory exam: PRESENT: clear to auscultation rivas. ABSENT: rales, rhonchi, wheezes Cardiovascular exam: PRESENT: RRR. ABSENT: diastolic murmur, rubs, systolic murmur Pulses: PRESENT: normal dorsalis pedis pul Vascular exam: PRESENT: normal capillary refill GI/Abdominal exam: PRESENT: normal bowel sounds, soft. ABSENT: distended, guarding, mass, organolmegaly, rebound, tenderness Rectal exam: PRESENT: deferred Extremities exam: PRESENT: full ROM. ABSENT: calf tenderness, clubbing, pedal edema Neurological exam: PRESENT: alert, awake, oriented to person, oriented to place, oriented to time, oriented to situation, CN II-XII grossly intact. ABSENT: motor sensory deficit Results Laboratory Results: 11/06/18 16:57 11/06/18 16:57 11/06/18 11/07/18 11/07/18 16:57 07:50 11:06 Sodium 141.0 Potassium 4.1 Chloride 103 Carbon Dioxide 30 Anion Gap 8 BUN 11 Creatinine 0.92 Est GFR ( Amer) > 60 Est GFR (Non-Af Amer) > 60 Glucose 88 Calcium 9.2 Total Bilirubin 0.3 AST 28 ALT 33 Alkaline Phosphatase 102 Total Protein 7.8 Albumin 4.2 TSH 6.18 H Free T4 1.13 Free T3 pg/mL 4.25 11/06/18 11/06/18 11/07/18 16:57 19:55 02:13 Troponin I < 0.012 < 0.012 < 0.012 11/07/18 11/07/18 07:50 13:48 Troponin I < 0.012 < 0.012 Impressions: Chest X-Ray 11/06/18 16:36 IMPRESSION: 1. No significant interval changes since the prior examination dated 11/01/2016. No acute findings. Abdomen Ultrasound 11/07/18 08:57 IMPRESSION: Small left renal cyst. No other significant findings. Qualifiers - * PATIENT BEING DISCHARGED WITH ANY OF THE FOLLOWING DIAGNOSIS: No Acute Heart Failure - Is this a Heart Failure Patient?: No LVEF < 40%?: No- if no continue to question #3 3. Anticoagulant therapy for permanect/persistent/paraoxysmal Afib or Aflutter: N/A
[2018-11-07] MEDS ORDERED: ATORVASTATIN CALCIUM 40 MG TABLET PO SCH (22:00)
--- NOTE | 2018-11-08 08:08 | EKG REPORT ---
SEVERITY:- NORMAL ECG - SINUS RHYTHM : Confirmed by: Concetta Mcclendon MD 07-Nov-2018 21:26:43
--- NOTE | 2018-11-08 09:37 | EKG REPORT ---
SEVERITY:- NORMAL ECG - SINUS RHYTHM : Confirmed by: Concetta Mcclendon MD 06-Nov-2018 20:20:30
== END 2018-11-07 16:20 | disposition home or self-care (01) ==
LOC: ER 16:02 → EH 23:04 → 3N 11-07 00:27
PROVIDERS: ADMIT Internal Medicine; ATTEND Internal Medicine
DX: R07.89 Other chest pain (principal); E78.5 Hyperlipidemia, unspecified; I10 Essential (primary) hypertension; J45.909 Unspecified asthma, uncomplicated; R11.0 Nausea; R06.02 Shortness of breath; R61 Generalized hyperhidrosis; R53.83 Other fatigue; R20.0 Anesthesia of skin; I25.2 Old myocardial infarction; Z79.82 Long term (current) use of aspirin; Z79.899 Other long term (current) drug therapy; Z82.49 Family history of ischemic heart disease and other diseases of the circulatory system
CPT/HCPCS: 93005; 99285; 36415 ×2; 84439; 84443; 85025; 85610; 85730; 80053; 84484 ×2; 84481; 83036; 85379; 71046; 76700; 93010; G0378 ×2; J3490 ×2

== ENCOUNTER 2018-12-19 06:42 | Observation (INO) | payer OTHER ==
[2018-12-19] MEDS ORDERED: ASPIRIN 81 MG TABLET, CHEWABLE PO ONE (07:04)
[2018-12-19 07:58] LABS: ABSOLUTE BASOPHILS # (AUTO) 0.1 10^3/uL (0.0-0.2); ABSOLUTE EOSINOPHILS # (AUTO) 0.3 10^3/uL (0.0-0.6); ABSOLUTE LYMPHOCYTES (AUTO) 1.8 10^3/uL (0.5-4.7); ABSOLUTE MONOCYTES (AUTO) 0.4 10^3/uL (0.1-1.4); ABSOLUTE NEUT (AUTO) 2.5 10^3/uL (1.7-8.2); BASOPHILS % (AUTO) 1.3 % (0-2); EOSINOPHILS % (AUTO) 5.6 % (0-6); HEMOGLOBIN 12.4 g/dL (12.0-15.5); LYMPHOCYTES % (AUTO) 35.2 % (13-45); MEAN CORPUSCULAR HEMOGLOBIN 31.3 pg (27.0-33.4); MEAN CORPUSCULAR HGB CONC 33.5 g/dL (32.0-36.0); MEAN CORPUSCULAR VOLUME 93 fl (80-97); MONOCYTES % (AUTO) 8.4 % (3-13); PLATELET COUNT 251 10^3/uL (150-450); RED BLOOD COUNT 3.96 10^6/uL (3.72-5.28); RED CELL DISTRIBUTION WIDTH 13.2 % (11.5-14.0); SEGMENTED NEUTROPHILS % (AUTO) 49.5 % (42-78); TOTAL CELLS COUNTED % (AUTO) 100 %; WHITE BLOOD COUNT 5.1 10^3/uL (4.0-10.5)
[2018-12-19 08:03] LABS: INTERNATIONAL RATION (INR) 0.99; PROTHROMBIN TIME 13.1 SEC (11.4-15.4)
[2018-12-19 08:20] LABS: ALBUMIN 3.9 g/dL (3.5-5.0); ALKALINE PHOSPHATASE 86 U/L (38-126); ANION GAP 8 (5-19); ASPARTATE AMINO TRANSFERASE 23 U/L (14-36); BILIRUBIN,DIRECT 0.1 mg/dL (0.0-0.4); BILIRUBIN,TOTAL 0.5 mg/dL (0.2-1.3); BLOOD UREA NITROGEN 12 mg/dL (7-20); CALCIUM 9.4 mg/dL (8.4-10.2); CARBON DIOXIDE 25 mmol/L (22-30); CHLORIDE 106 mmol/L (98-107); CREATINE KINASE 259 U/L (30-135); GLUCOSE 123 mg/dL (75-110); POTASSIUM 4.6 mmol/L (3.6-5.0); TOTAL PROTEIN 7.1 g/dL (6.3-8.2)
--- NOTE | 2018-12-19 08:27 | RADIOLOGY REPORT (SQ) ---
EXAM DESCRIPTION: CHEST 2 VIEWS COMPLETED DATE/TIME: 12/19/2018 7:24 am REASON FOR STUDY: CP COMPARISON: PA and lateral views of the chest from 11/06/2018. EXAM PARAMETERS: NUMBER OF VIEWS: two views TECHNIQUE: Digital Frontal and Lateral radiographic views of the chest acquired. RADIATION DOSE: NA LIMITATIONS: none FINDINGS: LUNGS AND PLEURA: No consolidation, pleural effusion or pneumothorax. MEDIASTINUM AND HILAR STRUCTURES: No mediastinal or hilar contour abnormality. HEART AND VASCULAR STRUCTURES: The cardiac silhouette and pulmonary vasculature are within normal zayas its. BONES: No acute findings. HARDWARE: None in the chest. OTHER: No other finding. IMPRESSION: No acute cardiopulmonary process. TECHNICAL DOCUMENTATION: JOB ID: [id number] [employer]- All Rights Reserved Reading location - IP/workstation name: [email or web address]
[2018-12-19 08:31] LABS: CREATINE KINASE MB 1.92 ng/mL (<4.55)
[2018-12-19 08:36] LABS: TROPONIN I 0.209 ng/mL
--- NOTE | 2018-12-19 09:24 | EKG REPORT ---
SEVERITY:- NORMAL ECG - SINUS RHYTHM : Confirmed by: Concetta Mcclendon MD 19-Dec-2018 09:24:04
[2018-12-19 10:10] LABS: APPEARANCE,URINE CLOUDY; BILIRUBIN,URINE NEGATIVE (NEGATIVE); COLOR,URINE YELLOW; GLUCOSE, URINE NEGATIVE (NEGATIVE); KETONES,URINE NEGATIVE (NEGATIVE); LEUKOCYTE ESTERASE,URINE LARGE (NEGATIVE); NITRITE,URINE NEGATIVE (NEGATIVE); PROTEIN,URINE NEGATIVE (NEGATIVE); URINE SPECIFIC GRAVITY 1.012; UROBILINOGEN,URINE NEGATIVE mg/dL (<2.0)
[2018-12-19] MEDS ORDERED: PROMETHAZINE HCL 25 MG TABLET PO PRN (10:34)
[2018-12-19] MEDS ORDERED: ACETAMINOPHEN 325 MG TABLET PO PRN (10:34)
[2018-12-19] MEDS ORDERED: ONDANSETRON 4 MG TAB.RAPDIS PO PRN (10:34)
--- NOTE | 2018-12-19 12:55 | ER Document Report ---
Entered by TRACEY MACDONALD SCRIBE 12/19/18 0746 Acting as scribe for:JOSE SIMMS DO ED Cardiac - General Chief Complaint: Chest Pain Stated Complaint: CHEST PAIN,NAUSEA Time Seen by Provider: 12/19/18 07:19 Mode of Arrival: Ambulatory Information source: Patient Notes: Patient is a 48 year old female with previous "stress based" OK in 2016 that presents to the emergency department today with complaints of chest pain which began last night. Patient states that she was at a football game and she walked to the parking lot, then walked back to the field and she developed chest pain during this walk that "lasted about 12 minutes". Patient states she had associated shortness of breath, nausea, and diaphoresis. Patient states when she got home from the game she took one nitroglycerin and went to bed. Patient states when putting on her shoes this morning she became short of breath so she decided to come in. Patient reports that she saw her copra processor on 12/06 and everything was fine at that time. Patient reports her catherization following the OK in 2016 was clean. TRAVEL OUTSIDE OF THE [place] IN LAST 30 DAYS: No - Related Data Allergies/Adverse Reactions: Penicillins Allergy (Verified 11/06/18 16:08) Past Medical History - General Information source: Patient - Social History Smoking Status: Never Smoker Cigarette use (# per day): No Lives with: Family Family History: Reviewed & Not Pertinent, DM, Hypertension, Thyroid Disfunction, Other - Patient's grandmother had heart disease and at 83. Patient's fater had congestive heart failure and at 55. - Past Medical History Cardiac Medical History: Reports: Hx Heart Attack - 12/19/2015 "stress related", Hx Hypercholesterolemia, Hx Hypertension Pulmonary Medical History: Reports: Hx Asthma Past Surgical History: Reports: Hx Cardiac Surgery, Hx Section, Hx Oral Surgery, Hx Tubal Ligation, Other - facial plastic surgery - Immunizations Hx Diphtheria, Pertussis, Tetanus Vaccination: Yes Hx Pneumococcal Vaccination: 01/09/16 Review of Systems - Review of Systems Constitutional: See HPI, Diaphoresis EENT: No symptoms reported Cardiovascular: See HPI, Chest pain, Heart racing Respiratory: See HPI, Short of breath Gastrointestinal: See HPI, Nausea Genitourinary: No symptoms reported Female Genitourinary: No symptoms reported Musculoskeletal: No symptoms reported Skin: No symptoms reported Hematologic/Lymphatic: No symptoms reported Neurological/Psychological: No symptoms reported -: Yes All other systems reviewed and negative Physical Exam - Vital signs Vitals: Temp Pulse Resp BP Pulse Ox 98.5 F 69 16 119/70 100 12/19/18 06:58 12/19/18 06:58 12/19/18 06:58 12/19/18 06:58 12/19/18 06:58 - Notes Notes: Physical Exam: General: Alert, appears well. HEENT: Normocephalic. Atraumatic. PERRL. Extraocular movements intact. Oropharynx clear. Neck: Supple. Non-tender. Respiratory: No respiratory distress. Clear and equal breath sounds bilaterally. Cardiovascular: Regular rate and rhythm. Abdominal: Normal Inspection. Non-tender. No distension. Normal Bowel Sounds. Back: No gross abnormalities. Extremities: Moves all four extremities. Upper extremities: Normal inspection. Normal ROM. Lower extremities: Normal inspection. No edema. Normal ROM. Neurological: Normal cognition. AAOx4. Normal speech. Psychological: Normal affect. Normal Mood. Skin: Warm. Dry. Normal color. Course - Re-evaluation Re-evalutation: 12/19/18 09:[address] King Patient is a 48-year-old female with a history of an STEMI in 2015. Patient is seen by Dr. Rosenberg, copra processor at [facility]. Patient comes in complaining of chest pain that she had yesterday. She had a clean cardiac cath in 2015. Patient had a stress test in June that was apparently normal. She saw her copra processor in November. Patient states that she is having difficulty breathing associated with this chest pain and some nausea. Patient took aspirin and nitroglycerin prior to arrival. No acute findings on EKG. Troponin is 0.2. Patient has not had ongoing chest pain. She was discussed with Dr. Robbins in [place]. Recommends admitting the patient here. She does not require transfer at this time. Patient is agreeable to this plan. She was discussed with the hospitalist service and will be admitted to telemetry. Stable at the time of admission. - Vital Signs Vital signs: Temp Pulse Resp BP Pulse Ox 98.5 F 69 19 115/87 H 100 12/19/18 06:58 12/19/18 06:58 12/19/18 11:52 12/19/18 11:52 12/19/18 11:52 - Laboratory Result Diagrams: 12/19/18 07:45 12/19/18 07:45 Laboratory results interpreted by me: 12/19/18 12/19/18 12/19/18 07:45 07:45 09:44 Glucose 123 H Creatine Kinase 259 H TSH 6.30 H Urine Blood SMALL H Ur Leukocyte Esterase LARGE H Discharge - Discharge Clinical Impression: NSTEMI (non-ST elevated myocardial infarction) Chest pain Qualifiers: Chest pain type: unspecified Qualified Code(s): R07.9 - Chest pain, unspecified Condition: Stable Disposition: ADMITTED INPATIENT Admitting Provider: Christine (Hospitalist) Unit Admitted: Telemetry I personally performed the services described in the documentation, reviewed and edited the documentation which was dictated to the scribe in my presence, and it accurately records my words and actions.
[2018-12-19] MEDS: METOPROLOL TARTRATE 25 MG TABLET PO SCH ×2 (13:09→22:22)
--- NOTE | 2018-12-19 15:57 | PDOC H&P ---
History of Present Illness Admission Date/PCP: 12/19/18 10:46 History of Present Illness: CRISTINA NUNEZ is a 48 year old female past medical history of hyperlipidemia, stress-induced cardiomyopathy, asthma, presented to ED complaining of chest pain. As per patient yesterday she was at a football game walk to the parking lot, when walking back to the field developed substernal, left-sided, pressure-like, chest pain, lasting about 10 to 12 minutes, radiating to her left arm, assoc iated with diaphoresis and nausea. When she got home she took 1 of her sublingual nitroglycerin, developed headache, went to bed. This morning when she woke up and was trying to put on her shoes she developed shortness of breath and decided to come to ED. Of note on 12/19/2015 patient presented to ED here at [facility] with troponins of 1.030, was transferred to [facility] where she underwent left heart cath and was told that her coronaries were normal and she had stress-induced cardiomyopathy likely Takotsubo. Academic Affairs Coordinator with Dr. Rosenberg last visit was on 12/06/2018 and she was told that everything was fine. In ED she was found to have mildly elevated troponins, ED physician had called anthropology and archeology instructor Dr. Robbins at at [facility] who had recommended for patient to be admitted here at [facility]. On my encounter patient is comfortably resting in bed, stating that her chest pain has resolved at this point, denies any recreational drug abuse. Also denying, denies any fever, chills, nausea, vomiting, diarrhea, constipation, urinary symptoms. Past Medical History Cardiac Medical History: Reports: Myocardial Infarction, Hyperlipidema Denies: Congestive Heart Failure, Hypertension Pulmonary Medical History: Reports: Bronchitis Denies: Asthma, Chronic Obstructive Pulmonary Disease (COPD), Pneumonia, Tuberculosis Neurological Medical History: Denies: Seizures Renal/ Medical History: Denies: End Stage Renal Disease GI Medical History: Denies: Cirrhosis, Gastroesophageal Reflux Disease Musculoskeltal Medical History: Reports: Arthritis Psychiatric Medical History: Denies: Bipolar Disorder, Depression Hematology: Denies: Anemia, Bleeding Tendencies Past Surgical History Past Surgical History: Reports: Section, Tubal Ligation, Other - facial plastic surgery Social History Lives with: Family Smoking Status: Never Smoker Frequency of Alcohol Use: None Hx Recreational Drug Use: No Drugs: None Hx Prescription Drug Abuse: No - Advance Directive Resuscitation Status: Full Code Family History Family History: Reviewed & Not Pertinent, DM, Hypertension, Thyroid Disfunction, Other - Patient's grandmother had heart disease and at 83. Patient's fater had congestive heart failure and at 55. Parental Family History Reviewed: Yes Children Family History Reviewed: Yes Sibling(s) Family History Reviewed.: Yes Medication/Allergy Home Medications: Albuterol Sulfate [Proair HFA Inhalation Aerosol 8.5 gm MDI] 1 puff IH Q6HP PRN 12/19/18 Aspirin [Adult Low Dose Aspirin EC] 81 mg PO DAILY 12/19/18 Atorvastatin Calcium [Lipitor 80 mg Tablet] 80 mg PO QHS 12/19/18 Cetirizine HCl [Zyrtec 10 mg Tablet] 10 mg PO DAILYP PRN 12/19/18 Metoprolol Tartrate [Lopressor 25 mg Tablet] 12.5 mg PO Q12 12/19/18 Pantoprazole Sodium [Protonix [address] Tablet] 40 mg PO QAM 12/19/18 Allergies/Adverse Reactions: Penicillins Allergy (Verified 11/06/18 16:08) Review of Systems Review of Systems: as per hpi Physical Exam Vital Signs: Temp Pulse Resp BP Pulse Ox 98.5 F 78 17 126/54 H 100 12/19/18 15:09 12/19/18 15:09 12/19/18 15:09 12/19/18 15:09 12/19/18 15:09 Intake & Output 12/18/18 12/19/18 12/20/18 06:59 06:59 06:59 Weight 89.7 kg General appearance: PRESENT: no acute distress, obese, well-developed, well- nourished Head exam: PRESENT: atraumatic, normocephalic Eye exam: PRESENT: conjunctiva pink, EOMI, PERRLA. ABSENT: scleral icterus Ear exam: PRESENT: normal external ear exam Mouth exam: PRESENT: moist, tongue midline Neck exam: ABSENT: carotid bruit, JVD, lymphadenopathy, thyromegaly Respiratory exam: PRESENT: clear to auscultation rivas. ABSENT: rales, rhonchi, wheezes Cardiovascular exam: PRESENT: RRR. ABSENT: diastolic murmur, rubs, systolic murmur Pulses: PRESENT: normal dorsalis pedis pul Vascular exam: PRESENT: normal capillary refill GI/Abdominal exam: PRESENT: normal bowel sounds, soft. ABSENT: distended, guarding, mass, organolmegaly, rebound, tenderness Rectal exam: PRESENT: deferred Extremities exam: PRESENT: full ROM. ABSENT: calf tenderness, clubbing, pedal edema Neurological exam: PRESENT: alert, awake, oriented to person, oriented to place, oriented to time, oriented to situation, CN II-XII grossly intact. ABSENT: motor sensory deficit Psychiatric exam: PRESENT: appropriate affect, normal mood. ABSENT: homicidal ideation, suicidal ideation Skin exam: PRESENT: dry, intact, warm. ABSENT: cyanosis, rash Results Laboratory Results: 12/19/18 07:45 12/19/18 07:45 12/19/18 12/19/18 12/19/18 07:45 07:45 07:45 WBC 5.1 RBC 3.96 Hgb 12.4 Hct 37.0 MCV 93 MCH 31.3 MCHC 33.5 RDW 13.2 Plt Count 251 Seg Neutrophils % 49.5 Sodium 139.1 Potassium 4.6 Chloride 106 Carbon Dioxide 25 Anion Gap 8 BUN 12 Creatinine 0.90 Est GFR ( Amer) > 60 Glucose 123 H Calcium 9.4 Total Bilirubin 0.5 AST 23 Alkaline Phosphatase 86 Total Protein 7.1 Albumin 3.9 TSH 6.30 H Urine Color Urine Appearance Urine pH Ur Specific Keene Urine Protein Urine Glucose (UA) Urine Ketones Urine Blood Urine Nitrite Ur Leukocyte Esterase Urine WBC (Auto) Urine RBC (Auto) 12/19/18 09:44 WBC RBC Hgb Hct MCV MCH MCHC RDW Plt Count Seg Neutrophils % Sodium Potassium Chloride Carbon Dioxide Anion Gap BUN Creatinine Est GFR ( Amer) Glucose Calcium Total Bilirubin AST Alkaline Phosphatase Total Protein Albumin TSH Urine Color YELLOW Urine Appearance CLOUDY Urine pH 6.0 Ur Specific Ke[place] 1.012 Urine Protein NEGATIVE Urine Glucose (UA) NEGATIVE Urine Ketones NEGATIVE Urine Blood SMALL H Urine Nitrite NEGATIVE Ur Leukocyte Esterase LARGE H Urine WBC (Auto) 14 Urine RBC (Auto) 43 12/19/18 12/19/18 12/19/18 07:45 07:45 11:55 Creatine Kinase 259 H CK-MB (CK-2) 1.92 Troponin I 0.209 0.192 Impressions: Chest X-Ray 12/19/18 07:04 IMPRESSION: No acute cardiopulmonary process. Assessment and Plan - Diagnosis (1) Chest pain, exertional Is this a current diagnosis for this admission?: Yes Plan: Mildly elevated troponin. Admit to telemetry. Started on aspirin, beta-blockers, high intensity statins, low molecular weight heparin, sublingual nitro, morphine, supplemental oxygen, trend troponins, 2D echo, consult cardiology. I have discussed the case with Dr. Mcclendon anthropology and archeology instructor who stated that he will see the patient tomorrow and will decide if patient will need a stress left heart cath. (2) Dyslipidemia Is this a current diagnosis for this admission?: Yes Plan: Continue high intensity statins. (3) Obesity (BMI 30-39.9) Is this a current diagnosis for this admission?: Yes Plan: BMI 35.0. Diet and lifestyle modification recommended. (4) UTI (urinary tract infection) Is this a current diagnosis for this admission?: Yes Plan: Likely due to gram-negative rods such as E. coli. UA positive for leukocyte esterase and WBC. Started on levofloxacin. Urine culture.
[2018-12-19] MEDS ORDERED: ALBUTEROL SULFATE HFA (90 MCG/PUFF) 200 PUFF/8.5 GM MDI IH PRN (16:07)
[2018-12-19] MEDS: NITROGLYCERIN 0.4 MG/TAB 25 TAB/BOTTLE SL PRN ×2 (16:42→21:00)
[2018-12-19] MEDS: MORPHINE SULFATE 10 MG/ML INJ IV PRN ×2 (16:43→20:58)
[2018-12-19 17:31] LABS: URINE AMPHETAMINES SCREEN NEGATIVE; URINE BARBITURATES SCREEN NEGATIVE; URINE BENZODIAZEPINES SCREEN NEGATIVE; URINE COCAINE SCREEN NEGATIVE; URINE MARIJUANA (THC) SCREEN NEGATIVE; URINE METHADONE SCREEN NEGATIVE
[2018-12-19 17:35] LABS: URINE PHENCYCLIDINE SCREEN NEGATIVE
--- NOTE | 2018-12-19 17:36 | RADIOLOGY REPORT (SQ) ---
EXAM DESCRIPTION: CTA CHEST COMPLETED DATE/TIME: 12/19/2018 5:21 pm REASON FOR STUDY: chest pain COMPARISON: 12/19/2015 TECHNIQUE: CT scan of the chest performed using helical scanning technique with dynamic intravenous contrast injection. Images reviewed with lung, soft tissue and bone windows. Reconstructed coronal and sagittal MPR images reviewed. Additional 3 dimensional post-processing performed to develop Maximal Intensity Projection images (CO P). All images stored on PACS. All CT scanners at this facility use dose modulation, iterative reconstruction, and/or weight based d osing when appropriate to reduce radiation dose to as low as reasonably achievable (ALARA). [facility]: Dose Right [facility]: CareDose [facility]: Dose Right [facility]: Teradose 4D [facility]: Mediasurface CONTRAST TYPE AND DOSE: contrast/concentration: Isovue 350.00 mg/ml; Total Contrast Delivered: 64.0 ml; Total Saline Delivered: 71.6 ml Contrast bolus adequate for pulmonary arteries and aorta. RENAL FUNCTION: GFR > 60. RADIATION DOSE: CT Rad equipment meets quality standard of care and radiation dose reduction techniq ues were employed. CTDIvol: 19.8 - 24.3 mGy. DLP: 850 mGy-cm. . LIMITATIONS: None. FINDINGS: LUNGS AND PLEURA: No masses, infiltrates, or pneumothorax. No pleural effusions or pleura l calcifications. AORTA AND GREAT VESSELS: No aneurysm. No dissection. HEART: No pericardial effusion. No significant coronary artery calcifications. PULMONARY ARTERIES: No emboli visualized in the main pulmonary arteries or the segmental branches. HILAR AND MEDIASTINAL STRUCTURES: No identified masses or abnormal nodes. HARDWARE: None in the chest. UPPER ABDOMEN: No acute findings. Limited exam. THYROID AND OTHER SOFT TISSUES: No masses. No adenopathy. BONES: No acute or significant finding. 3D MIPS: Confirm above findings. OTHER: No other significant finding. IMPRESSION: No acute findings. NO PULMONARY EMBOLI. COMMENT: Quality ID # [id number]: Final reports with documentation of one or more dose reduction techniques (e.g., Automated exposure control, adjustment of the mA and/or kV according to patient size, use of iterative reconstruction technique) TECHNICAL DOCUMENTATION: JOB ID: [id number] [place]-72 2010 [employer]- All Rights Reserved Reading location - IP/workstation name: [email or web address]
[2018-12-19] MEDS: FAMOTIDINE 20 MG TABLET PO SCH (17:46)
[2018-12-19] MEDS: LEVOFLOXACIN 500 MG TABLET PO SCH (17:47)
--- NOTE | 2018-12-19 20:49 | XCELERA REPORT ---
[address] [address] Transthoracic Echocardiogram Report Name: CRISTINA NUNEZ Age: 48 yrs Gender: Female : 1970 Patient Status: Inpatient Patient Location: [address] [place], [place] [address]A Study Date: 12/19/2018 01:25 PM Height: 63 in Weight: 197 lb BSA: 1.9 m2 Procedure: A two-dimensional transthoracic echocardiogram with color flow and Doppler was performed. The study was technically limited with all images being suboptimal in quality. Reason For Study: CHEST PAIN History: CHEST PAIN. Ordering Physician: FRANCE LONDON Performed By: Dorie Tavarez Interpretation Summary The left ventricle is normal in size. There is normal left ventricular wall thickness. The left ventricular ejection fraction is within normal limits. LV EF is 70% Doppler measurements suggest impaired left ventricular relaxation, which is associated with grade I/IV or mild diastolic dysfunction The left ventricular wall motion is normal. There is no thrombus. Cannot assess ASD,VSD , or PFO. The right ventricle is normal in size and function. The right atrium is normal. The left atrial size is normal. There is no evidence of mitral valve prolapse. There is no vegetation seen on the mitral valve. There is no mitral valve stenosis. There is a trace to mild amount of mitral regurgitation There is no aortic valvular vegetation. There is aortic sclerosis without aortic stenosis. No aortic regurgitation is present. There is no tricuspid stenosis. There is a trace amount of tricuspid regurgitation Right ventricular systolic pressure is at the upper limits of normal RVSP is 30 mm of Hg , with RA mean of 10. The aortic root is normal size. The inferior vena cava was not visualized There is no pericardial effusion. MMode/2D Measurements & Calculations RVDd: 3.0 cm LVIDd: 4.5 cm FS: 42.1 % Ao root diam: 2.5 cm IVSd: 0.81 cm LVIDs: 2.6 cm EDV(Teich): Ao root area: LVPWd: 0.95 cm 91.6 ml 5.0 cm2 ESV(Teich): 24.5 ml EF(Teich): 73.3 % EDV(MOD-sp4): SV(MOD-sp4): 92.8 ml 63.4 ml ESV(MOD-sp4): 29.4 ml EF(MOD-sp4): 68.3 % Doppler Measurements & Calculations MV E max demetrius: MV dec slope: Ao V2 max: LV V1 max P.4 cm/sec 142.1 cm/sec 3.6 mmHg MV A max demetrius: 348.7 cm/sec2 Ao max P.1 mmHgLV V1 max: 94.5 cm/sec MV dec time: 0.22 sec 94.2 cm/sec MV E/A: 0.83 PA V2 max: PI end-d demetrius: TR max demetrius: 111.2 cm/sec 68.7 cm/sec 224.2 cm/sec PA max P.9 mmHg TR max P.1 mmHg Left Ventricle The left ventricle is normal in size. There is normal left ventricular wall thickness. The left ventricular ejection fraction is within normal limits. LV EF is 70%. Doppler measurements suggest impaired left ventricular relaxation, which is associated with grade I/IV or mild diastolic dysfunction. The left ventricular wall motion is normal. There is no thrombus. Cannot assess ASD,VSD , or PFO. Right Ventricle The right ventricle is normal in size and function. Atria The right atrium is normal. The left atrial size is normal. Mitral Valve There is no evidence of mitral valve prolapse. There is no vegetation seen on the mitral valve. There is no mitral valve stenosis. There is a trace to mild amount of mitral regurgitation. Aortic Valve There is no aortic valvular vegetation. There is aortic sclerosis without aortic stenosis. There is no LVOT obstruction. No aortic regurgitation is present. Tricuspid Valve There is no tricuspid stenosis. There is a trace amount of tricuspid regurgitation. Right ventricular systolic pressure is at the upper limits of normal. RVSP is 30 mm of Hg , with RA mean of 10. Great Vessels The aortic root is normal size. The inferior vena cava was not visualized. Effusions There is no pericardial effusion. : FRANCE LONDON Lakshmi
[2018-12-19] MEDS: ENOXAPARIN SODIUM INJ 80 MG/0.8 ML DISP.SYRIN SUBCUT SCH (22:22)
[2018-12-19] MEDS: ATORVASTATIN CALCIUM 80 MG TABLET PO SCH (22:22)
[2018-12-20] MEDS: NITROGLYCERIN 0.4 MG/TAB 25 TAB/BOTTLE SL PRN ×2 (08:06→09:07)
[2018-12-20] MEDS: MORPHINE SULFATE 10 MG/ML INJ IV PRN (08:06)
[2018-12-20] MEDS: ASPIRIN 81 MG TABLET, CHEWABLE PO SCH (09:03)
[2018-12-20] MEDS: ENOXAPARIN SODIUM INJ 80 MG/0.8 ML DISP.SYRIN SUBCUT SCH ×2 (09:03→21:10)
[2018-12-20] MEDS: METOPROLOL TARTRATE 25 MG TABLET PO SCH ×2 (09:03→21:10)
[2018-12-20] MEDS: FAMOTIDINE 20 MG TABLET PO SCH ×2 (09:04→17:58)
--- NOTE | 2018-12-20 09:33 | EKG REPORT ---
SEVERITY:- NORMAL ECG - SINUS RHYTHM : Confirmed by: Concetta Mcclendon MD 20-Dec-2018 09:32:14
[2018-12-20 11:41] LABS: FREE T3 3.41 pg/mL (2.77-5.27); FREE T4 (FREE THYROXINE) 1.29 ng/dL (0.78-2.19)
--- NOTE | 2018-12-20 17:46 | PDOC PROGRESS REPORT ---
Subjective Progress Note for:: 12/20/18 Subjective:: CRISTINA NUNEZ is a 48 year old female past medical history of hy perlipidemia, stress-induced cardiomyopathy, asthma, presented to ED complaining of chest pain. As per patient yesterday she was at a football game walk to the parking lot, when walking back to the field developed substernal, left-sided, pressure-like, chest pain, lasting about 10 to 12 minutes, radiating to her left arm, associated with diaphoresis and nausea. When she got home she took 1 of her sublingual nitroglycerin, developed headache, went to bed. This morning when she woke up and was trying to put on her shoes she developed shortness of breath and decided to come to ED. Of note on 12/19/2015 patient presented to ED here at [facility] with troponins of 1.030, was transferred to [facility] where she underwent left heart cath and was told that her coronaries were normal and she had stress-induced cardiomyopathy likely Takotsubo. Plastic Installer with Dr. Rosenberg last visit was on 12/06/2018 and she was told that everything was fine. In ED she was found to have mildly elevated troponins, ED physician had called life science technician Dr. Robbins at at [facility] who had recommended for patient to be admitted here at [facility]. On my encounter patient is comfortably resting in bed, stating that her chest pain has resolved at this point, denies any recreational drug abuse. Also denying, denies any fever, chills, nausea, vomiting, diarrhea, constipation, urinary symptoms. 12/20/2018. No acute events overnight. Patient is still having on and off substernal chest pain relieved with nitro. Denies any fever, chills, nausea, vomiting, diarrhea, constipation or any urinary symptoms. Patient is pending a stress test tomorrow. Reason For Visit: ELEVATED TROPONIN Physical Exam Vital Signs: Temp Pulse Resp BP Pulse Ox 98.4 F 66 16 111/55 L 100 12/20/18 15:27 12/20/18 15:27 12/20/18 15:27 12/20/18 15:27 12/20/18 15:27 Intake & Output 12/19/18 12/20/18 12/21/18 06:59 06:59 06:59 Intake Total 120 Balance 120 Weight 89.6 kg General appearance: PRESENT: no acute distress, obese, well-developed, well- nourished Head exam: PRESENT: atraumatic, normocephalic Eye exam: PRESENT: conjunctiva pink, EOMI, PERRLA. ABSENT: scleral icterus Ear exam: PRESENT: normal external ear exam Mouth exam: PRESENT: moist, tongue midline Neck exam: ABSENT: carotid bruit, JVD, lymphadenopathy, thyromegaly Respiratory exam: PRESENT: clear to auscultation rivas. ABSENT: rales, rhonchi, wheezes Cardiovascular exam: PRESENT: RRR. ABSENT: diastolic murmur, rubs, systolic murmur Pulses: PRESENT: normal dorsalis pedis pul Vascular exam: PRESENT: normal capillary refill GI/Abdominal exam: PRESENT: normal bowel sounds, soft. ABSENT: distended, guarding, mass, organolmegaly, rebound, tenderness Rectal exam: PRESENT: deferred Extremities exam: PRESENT: full ROM. ABSENT: calf tenderness, clubbing, pedal edema Neurological exam: PRESENT: alert, awake, oriented to person, oriented to place, oriented to time, oriented to situation, CN II-XII grossly intact. ABSENT: motor sensory deficit Psychiatric exam: PRESENT: appropriate affect, normal mood. ABSENT: homicidal ideation, suicidal ideation Skin exam: PRESENT: dry, intact, warm. ABSENT: cyanosis, rash Results Laboratory Results: 12/19/18 07:45 12/19/18 07:45 12/20/18 10:47 Free T4 1.29 Free T3 pg/mL 3.41 12/19/18 12/19/18 12/19/18 07:45 07:45 11:55 Creatine Kinase 259 H CK-MB (CK-2) 1.92 Troponin I 0.209 0.192 12/19/18 12/20/18 18:15 09:20 Creatine Kinase CK-MB (CK-2) Troponin I 0.146 0.072 Impressions: Chest/Abdomen CTA 12/19/18 00:00 IMPRESSION: No acute findings. NO PULMONARY EMBOLI. Chest X-Ray 12/19/18 07:04 IMPRESSION: No acute cardiopulmonary process. Assessment and Plan - Diagnosis (1) Chest pain, exertional Is this a current diagnosis for this admission?: Yes Plan: Troponins trending down however patient still having substernal chest pain relieved with nitro. Troponins 0.2, 0.19, 0.14, 0.072 respectively. CTA negative for any PE. TSH mildly elevated, T3-T4 WNL. Continue telemetry, aspirin, beta-blockers, high intensity statins, low molecular weight heparin, sublingual nitro, morphine, supplemental oxygen. Cardiology consulted. As per my conversation with Dr. Mcclendon life science technician patient will have a stress test tomorrow. (2) Dyslipidemia Is this a current diagnosis for this admission?: Yes Plan: Continue high intensity statins. (3) Obesity (BMI 30-39.9) Is this a current diagnosis for this admission?: Yes Plan: BMI 35.0. Diet and lifestyle modification recommended. (4) UTI (urinary tract infection) Qualifiers: Urinary tract infection type: acute cystitis Hematuria presence: with hematuria Qualified Code(s): N30.01 - Acute cystitis with hematuria Is this a current diagnosis for this admission?: Yes Plan: Likely due to gram-negative rods such as E. coli. UA positive for leukocyte esterase and WBC. Day 2 p.o. levofloxacin. Continue empiric antibiotics. Follow-up urine culture.
[2018-12-20] MEDS: LEVOFLOXACIN 500 MG TABLET PO SCH (17:58)
[2018-12-20] MEDS: ATORVASTATIN CALCIUM 80 MG TABLET PO SCH (21:10)
--- NOTE | 2018-12-20 21:29 | PDOC CONSULTATION ---
Consultation-Blank Consultation: CARDIOLOGY CONSULTATION by Dr. Concetta Mcclendon on 12/20/2018. Patient seen at 9 AM on 12/20/2018. 60 minutes spent on this patient with more than 50% of time spent in direct patient care. Her records from [facility] were also reviewed by me. This was with the patient's permission. REASON FOR CONSULTATION: Patient with atypical chest pain with elevated troponin. CONSULT REQUESTING PHYSICIAN: Dr. [facility], [facility]. HISTORY PRESENT ILLNESS: Patient is a 48-year-old Afro-[place] female with no history of hypertension or diabetes mellitus, admitted with chest pain. The patient states that yesterday she walked from the football field to her car and walked back to the [employer]. Subsequently after she stood in the football PA field after walking to and back from the car at rest she had severe chest pain. She states that it was sharp pain throughout the chest associated with nausea with radiation to the left arm and with shortness of breath. The patient also states that her chest was very tender to touch this severe pain lasted for about 20 minutes. Subsequently the patient had a dull ache in the chest and subsequently which lasted till she went home and she states that she took a nitroglycerin, without any relief but did develop a headache and then went to sleep. Of note when she had the chest pain when she walked she states that the pain did not increase. She has a prior history of atypical chest pain in 2016, when she had an elevated troponin level. She was transferred to [facility] where she had a cardiac catheterization, which showed normal coronaries. Hence it was diagnosed to be a supply demand mismatch type of type II myocardial infarction. The patient subsequently was followed up by Dr. Boom Rosenberg. She had a exercise Cardiolite stress test in May 2018, where there was no ischemia or AZ by nuclear imaging. The patient has no history of hypertension or diabetes mellitus. She has no history of thyroid disease. There is no history of asthma or COPD. There is no history of chronic kidney disease. She has a history of hyperlipidemia. Past Medical History Cardiac Medical History: Reports: Myocardial Infarction, which is type II supply demand ischemia type of AZ, with normal coronaries by cardiac catheterization., Hyperlipidema Denies: Congestive Heart Failure, Hypertension Pulmonary Medical History: Reports: Bronchitis Denies: Asthma, Chronic Obstructive Pulmonary Disease (COPD), Pneumonia, Tuberculosis Neurological Medical History: Denies: Seizures Renal/ Medical History: Denies: End Stage Renal Disease GI Medical History: Denies: Cirrhosis, Gastroesophageal Reflux Disease Musculoskeltal Medical History: Reports: Arthritis Psychiatric Medical History: Denies: Bipolar Disorder, Depression Hematology: Denies: Anemia, Bleeding Tendencies Past Surgical History Past Surgical History: Reports: Section, Tubal Ligation, Other - facial plastic surgery. Cardiac catheterization in 2017. Social History Lives with: Family Smoking Status: Never Smoker Frequency of Alcohol Use: None Hx Recreational Drug Use: No Drugs: None Hx Prescription Drug Abuse: No - Advance Directive Resuscitation Status: Full Code. Her mother is her surrogate healthcare decision maker. Family History Family History: Reviewed & Not Pertinent, DM, Hypertension, Thyroid Disfunction, Other - Patient's grandmother had heart disease and at 83. Patient's fater had congestive heart failure and at 55. Parental Family History Reviewed: Yes Children Family History Reviewed: Yes Sibling(s) Family History Reviewed.: Yes Medication/Allergy Home Medications: Albuterol Sulfate [Proair HFA Inhalation Aerosol 8.5 gm MDI] 1 puff IH Q6HP PRN 12/19/18 Aspirin [Adult Low Dose Aspirin EC] 81 mg PO DAILY 12/19/18 Atorvastatin Calcium [Lipitor 80 mg Tablet] 80 mg PO QHS 12/19/18 Cetirizine HCl [Zyrtec 10 mg Tablet] 10 mg PO DAILYP PRN 12/19/18 Metoprolol Tartrate [Lopressor 25 mg Tablet] 12.5 mg PO Q12 12/19/18 Pantoprazole Sodium [Protonix [address] Tablet] 40 mg PO QAM 12/19/18 PHYSICAL EXAMINATION: The patient is moderately obese. She is well-groomed in no acute distress. Selected Entries 12/20/18 07:23 Temperature 98.4 F Temperature Oral Source Pulse Rate 81 Respiratory 16 Rate Blood Pressure 110/54 L Blood Pressure 72 Mean BP Location Left Arm BP Position Supine O2 Sat by Pulse 100 Oximetry Oxygen Flow 2.00 Rate Oxygen Delivery Nasal Cannula Method HEAD: Is atraumatic normocephalic. EYES: Pupils are equal round regular reactive light accommodation. Extraocular movements are normal. There is no conjunctival pallor. There is no scleral icterus. EARS: Tympanic membranes are intact. External auditory canals are clear. NOSE: There is no deviated nasal septum. There is no inflammation nasal mucous membrane. MOUTH: Mucous membranes of the mouth are moist. Tongue is moist. There is no ulcers. There is no bleeding from the gums. THROAT: There is no redness of the oropharynx. There is no exudates. SKIN: There is no skin rashes or skin lesions. There is no particular ecchymosis. NECK: Is supple. There is no JVD. Carotids are equal there is no bruits. There is no lymphadenopathy. There is no goiter. There is no accessory muscles of respiration use. Trachea central. On palpation of the chest there is no chest wall tenderness. LUNGS: Clear to auscultation percussion without any rhonchi rales or wheezing. HEART: S1-S2 is heard. There is no S3 gallop. There is no S4 gallop. There is systolic murmur left sternal border and the apex there is no rub. ABDOMEN: Is obese. Non tender. There is no hepatospleno megaly. Bowel sounds are well heard. There is no tender areas masses. EXTREMITIES: Femorals are deep. Femorals are diminished. Leg pulses are well felt. There is no pedal edema. There is no DVT or cellulitis. There is no calf tenderness. There is no cyanosis or clubbing. DRAFTER GEOLOGICAL: The patient is conscious awake alert oriented x3 with no focal deficit. PSYCHIATRIC: The patient judgment and insight are intact her affect is normal. Current Medications Generic Name Dose Route Start Last Admin Trade Name Freq PRN Reason Stop Dose Admin Acetaminophen 650 mg 12/19/18 10:34 Tylenol 325 Mg Tablet PO 01/18/19 10:33 Q4HP PRN FOR HEADACHE Albuterol 1 puff 12/19/18 16:07 Proair Hfa Inhalation Aerosol 8.5 Gm Mdi IH 01/18/19 16:06 Q6HP PRN SHORTNESS OF BREATH Aspirin 81 mg 12/20/18 10:00 12/20/18 09:03 Aspirin 81 Mg Chewable Tablet PO 01/19/19 09:59 81 mg DAILY EDWIN Administration Atorvastatin Calcium 80 mg 12/19/18 22:00 12/20/18 21:10 Lipitor 80 Mg Tablet PO 01/18/19 21:59 80 mg QHS EDWIN Administration Enoxaparin Sodium 80 mg 12/19/18 22:00 12/20/18 21:10 Lovenox Inj 80 Mg/0.8 Ml Disp.Syrin SUBCUT 01/18/19 21:59 80 mg Q12 EDWIN Administration Famotidine 20 mg 12/19/18 18:00 12/20/18 17:58 Pepcid 20 Mg Tablet PO 01/18/19 17:59 20 mg BID EDWIN Administration Levofloxacin 500 mg 12/19/18 18:00 12/20/18 17:58 Levaquin 500 Mg Tablet PO 12/26/18 17:59 500 mg QPM EDWIN Administration Metoprolol Tartrate 12.5 mg 12/19/18 11:00 12/20/18 21:10 Lopressor 25 Mg Tablet PO 01/18/19 10:59 12.5 mg Q12 EDWIN Administration Morphine Sulfate 1 mg 12/19/18 10:33 12/20/18 08:06 Morphine 10 Mg/Ml Inj IV 12/26/18 10:32 1 mg Q4HP PRN Administration FOR PAIN SCALE 3-5 Nitroglycerin 1 tab 12/19/18 10:32 12/20/18 09:07 Nitrostat 0.4 Mg (1/150 Gr) Tabs 25/Bottle SL 01/18/19 10:31 1 tab Q5MP PRN Administration FOR CHEST PAIN Ondansetron HCl 4 mg 12/19/18 10:34 12/20/18 13:54 Zofran Odt 4 Mg Tablet PO 01/18/19 10:33 4 mg Q6HP PRN Administration FOR NAUSEA/VOMITING Promethazine HCl 12.5 mg 12/19/18 10:34 Phenergan 25 Mg Tablet PO 01/18/19 10:33 Q6HP PRN FOR UNRESOLVED NAUSEA/VOMITING Sodium Chloride 2.5 ml 12/19/18 14:00 12/20/18 21:10 Saline Flush 2.5 Ml Monoject Prefil Syrin IV 01/18/19 13:59 2.5 ml Q8 EDWIN Administration Discontinued Medications Generic Name Dose Route Start Last Admin Trade Name Freq PRN Reason Stop Dose Admin Aspirin 324 mg 12/19/18 07:04 12/19/18 07:29 Aspirin 81 Mg Chewable Tablet PO 12/19/18 07:05 324 mg NOW ONE Administration Labs- Entire Visit 12/19/18 12/19/18 12/19/18 07:45 07:45 07:45 WBC 5.1 RBC 3.96 Hgb 12.4 Hct 37.0 MCV 93 MCH 31.3 MCHC 33.5 RDW 13.2 Plt Count 251 Lymph % (Auto) 35.2 [place] % (Auto) 8.4 Eos % (Auto) 5.6 Baso % (Auto) 1.3 Absolute Neuts (auto) 2.5 Absolute Lymphs (auto) 1.8 Absolute Monos (auto) 0.4 Absolute Eos (auto) 0.3 Absolute Basos (auto) 0.1 Seg Neutrophils % 49.5 PT INR Sodium 139.1 Potassium 4.6 Chloride 106 Carbon Dioxide 25 Anion Gap 8 BUN 12 Creatinine 0.90 Est GFR ( Amer) > 60 Est GFR (MDRD) Non-Af > 60 Glucose 123 H Calcium 9.4 Total Bilirubin 0.5 Direct Bilirubin 0.1 Neonat Total Bilirubin Not Reportable Neonat Direct Bilirubin Not Reportable Neonat Indirect Bili Not Reportable AST 23 ALT 20 Alkaline Phosphatase 86 Creatine Kinase 259 H CK-MB (CK-2) 1.92 Troponin I 0.209 Total Protein 7.1 Albumin 3.9 TSH Free T4 Free T3 pg/mL Urine Color Urine Appearance Urine pH Ur Specific Emerado Urine Protein Urine Glucose (UA) Urine Ketones Urine Blood Urine Nitrite Urine Bilirubin Urine Urobilinogen Ur Leukocyte Esterase Urine WBC (Auto) Urine RBC (Auto) Urine Bacteria (Auto) Squamous Epi Cells Auto Urine Mucus (Auto) Urine Ascorbic Acid Urine Opiates Screen Urine Methadone Screen Ur Barbiturates Screen Ur Phencyclidine Scrn Ur Amphetamines Screen U Benzodiazepines Scrn Urine Cocaine Screen U Marijuana (THC) Screen 12/19/18 12/19/18 12/19/18 07:45 07:45 09:41 WBC RBC Hgb Hct MCV MCH MCHC RDW Plt Count Lymph % (Auto) [place] % (Auto) Eos % (Auto) Baso % (Auto) Absolute Neuts (auto) Absolute Lymphs (auto) Absolute Monos (auto) Absolute Eos (auto) Absolute Basos (auto) Seg Neutrophils % PT 13.1 INR 0.99 Sodium Potassium Chloride Carbon Dioxide Anion Gap BUN Creatinine Est GFR ( Amer) Est GFR (MDRD) Non-Af Glucose Calcium Total Bilirubin Direct Bilirubin Neonat Total Bilirubin Neonat Direct Bilirubin Neonat Indirect Bili AST ALT Alkaline Phosphatase Creatine Kinase CK-MB (CK-2) Troponin I Total Protein Albumin TSH 6.30 H Free T4 Free T3 pg/mL Urine Color Urine Appearance Urine pH Ur Specific Emerado Urine Protein Urine Glucose (UA) Urine Ketones Urine Blood Urine Nitrite Urine Bilirubin Urine Urobilinogen Ur Leukocyte Esterase Urine WBC (Auto) Urine RBC (Auto) Urine Bacteria (Auto) Squamous Epi Cells Auto Urine Mucus (Auto) Urine Ascorbic Acid Urine Opiates Screen NEGATIVE Urine Methadone Screen NEGATIVE Ur Barbiturates Screen NEGATIVE Ur Phencyclidine Scrn NEGATIVE Ur Amphetamines Screen NEGATIVE U Benzodiazepines Scrn NEGATIVE Urine Cocaine Screen NEGATIVE U Marijuana (THC) Screen NEGATIVE 12/19/18 12/19/18 12/19/18 09:44 11:55 18:15 WBC RBC Hgb Hct MCV MCH MCHC RDW Plt Count Lymph % (Auto) [place] % (Auto) Eos % (Auto) Baso % (Auto) Absolute Neuts (auto) Absolute Lymphs (auto) Absolute Monos (auto) Absolute Eos (auto) Absolute Basos (auto) Seg Neutrophils % PT INR Sodium Potassium Chloride Carbon Dioxide Anion Gap BUN Creatinine Est GFR ( Amer) Est GFR (MDRD) Non-Af Glucose Calcium Total Bilirubin Direct Bilirubin Neonat Total Bilirubin Neonat Direct Bilirubin Neonat Indirect Bili AST ALT Alkaline Phosphatase Creatine Kinase CK-MB (CK-2) Troponin I 0.192 0.146 Total Protein Albumin TSH Free T4 Free T3 pg/mL Urine Color YELLOW Urine Appearance CLOUDY Urine pH 6.0 Ur Specific Emerado 1.012 Urine Protein NEGATIVE Urine Glucose (UA) NEGATIVE Urine Ketones NEGATIVE Urine Blood SMALL H Urine Nitrite NEGATIVE Urine Bilirubin NEGATIVE Urine Urobilinogen NEGATIVE Ur Leukocyte Esterase LARGE H Urine WBC (Auto) 14 Urine RBC (Auto) 43 Urine Bacteria (Auto) 1+ Squamous Epi Cells Auto 14 Urine Mucus (Auto) RARE Urine Ascorbic Acid NEGATIVE Urine Opiates Screen Urine Methadone Screen Ur Barbiturates Screen Ur Phencyclidine Scrn Ur Amphetamines Screen U Benzodiazepines Scrn Urine Cocaine Screen U Marijuana (THC) Screen 12/20/18 12/20/18 09:20 10:47 WBC RBC Hgb Hct MCV MCH MCHC RDW Plt Count Lymph % (Auto) [place] % (Auto) Eos % (Auto) Baso % (Auto) Absolute Neuts (auto) Absolute Lymphs (auto) Absolute Monos (auto) Absolute Eos (auto) Absolute Basos (auto) Seg Neutrophils % PT INR Sodium Potassium Chloride Carbon Dioxide Anion Gap BUN Creatinine Est GFR ( Amer) Est GFR (MDRD) Non-Af Glucose Calcium Total Bilirubin Direct Bilirubin Neonat Total Bilirubin Neonat Direct Bilirubin Neonat Indirect Bili AST ALT Alkaline Phosphatase Creatine Kinase CK-MB (CK-2) Troponin I 0.072 Total Protein Albumin TSH Free T4 1.29 Free T3 pg/mL 3.41 Urine Color Urine Appearance Urine pH Ur Specific Emerado Urine Protein Urine Glucose (UA) Urine Ketones Urine Blood Urine Nitrite Urine Bilirubin Urine Urobilinogen Ur Leukocyte Esterase Urine WBC (Auto) Urine RBC (Auto) Urine Bacteria (Auto) Squamous Epi Cells Auto Urine Mucus (Auto) Urine Ascorbic Acid Urine Opiates Screen Urine Methadone Screen Ur Barbiturates Screen Ur Phencyclidine Scrn Ur Amphetamines Screen U Benzodiazepines Scrn Urine Cocaine Screen U Marijuana (THC) Screen Chest/Abdomen CTA 12/19/18 00:00 IMPRESSION: No acute findings. NO PULMONARY EMBOLI. Echocardiogram: Shows normal LV LV ejection fraction with no wall motion normality. Please see report. Chest X-Ray 12/19/18 07:04 IMPRESSION: No acute cardiopulmonary process. IMPRESSION/RECOMMENDATION: 1. Atypical chest pain, with elevated troponin. The differential diagnosis is type II supply demand ischemia, versus falsely elevated troponin levels secondary to heterophil antibodies. The suspicion is there since the patient's TSH is also elevated. The patient has no symptoms or signs of hypothyroidism. But to be absolutely sure since the patient does have coronary artery disease risk factors namely age, hyperlipidemia, and family history of coronary artery disease, will get up exercise treadmill Cardiolite stress test in the a.m. 2. Coronary artery spasm needs to be ruled out. Hence would stop the patient's metoprolol, and also continue the patient on sublingual nitroglycerin as needed. Will change to amlodipine orally. We will also recommend that the patient have a 30-day event monitor. We will talk to Dr. Boom Rosenberg. This is to find out if the patient does have coronary artery spasm causing the patient's symptoms. 3. Hyperlipidemia: Continue statins. Discussed with the laboratory personnel, will order heterophil antibodies and also troponin T, which is not affected by heterophil antibodies. Medications reviewed. Medications adjusted management plan discussed with attending physician on the case. Medical decision making is of high complexity. 60 minutes spent on this patient with more than 50% of time spent in direct patient care. Will follow.
[2018-12-21 06:02] LABS: APPEARANCE,URINE SLIGHTLY-CLOUDY; BILIRUBIN,URINE NEGATIVE (NEGATIVE); COLOR,URINE YELLOW; GLUCOSE, URINE NEGATIVE (NEGATIVE); KETONES,URINE NEGATIVE (NEGATIVE); LEUKOCYTE ESTERASE,URINE LARGE (NEGATIVE); NITRITE,URINE NEGATIVE (NEGATIVE); PROTEIN,URINE NEGATIVE (NEGATIVE); URINE SPECIFIC GRAVITY 1.015; UROBILINOGEN,URINE NEGATIVE mg/dL (<2.0)
[2018-12-21 06:28] LABS: ABSOLUTE EOSINOPHILS # (AUTO) 0.3 10^3/uL (0.0-0.6); ABSOLUTE MONOCYTES (AUTO) 0.4 10^3/uL (0.1-1.4); ABSOLUTE NEUT (AUTO) 2.3 10^3/uL (1.7-8.2); BASOPHILS % (AUTO) 0.8 % (0-2); EOSINOPHILS % (AUTO) 5.4 % (0-6); HEMATOCRIT 36.1 % (36.0-47.0); HEMOGLOBIN 12.2 g/dL (12.0-15.5); LYMPHOCYTES % (AUTO) 39.9 % (13-45); MEAN CORPUSCULAR HGB CONC 33.7 g/dL (32.0-36.0); MEAN CORPUSCULAR VOLUME 92 fl (80-97); MONOCYTES % (AUTO) 8.1 % (3-13); PLATELET COUNT 258 10^3/uL (150-450); RED BLOOD COUNT 3.92 10^6/uL (3.72-5.28); SEGMENTED NEUTROPHILS % (AUTO) 45.8 % (42-78); TOTAL CELLS COUNTED % (AUTO) 100 %; WHITE BLOOD COUNT 5.1 10^3/uL (4.0-10.5)
[2018-12-21 06:36] LABS: ADD MANUAL MICROSCOPIC YES; RBC,URINE 0-1 /HPF; WBC,URINE 50-100 /HPF
[2018-12-21 06:38] LABS: BACTERIA,URINE 2+ /HPF
[2018-12-21 06:39] LABS: TRICHOMONAS,URINE PRESENT
[2018-12-21 06:50] LABS: ALBUMIN 3.7 g/dL (3.5-5.0); ALKALINE PHOSPHATASE 87 U/L (38-126); ANION GAP 8 (5-19); ASPARTATE AMINO TRANSFERASE 21 U/L (14-36); BILIRUBIN,TOTAL 0.5 mg/dL (0.2-1.3); BLOOD UREA NITROGEN 13 mg/dL (7-20); CARBON DIOXIDE 25 mmol/L (22-30); CHLORIDE 105 mmol/L (98-107); CHOLESTEROL 93.99 mg/dL (0-200); GLUCOSE 109 mg/dL (75-110); POTASSIUM 4.6 mmol/L (3.6-5.0); TOTAL PROTEIN 6.9 g/dL (6.3-8.2); TRIGLYCERIDES 75 mg/dL (<150)
[2018-12-21 07:00] LABS: DIRECT LDL 65 mg/dL (<100)
[2018-12-21] MEDS: ASPIRIN 81 MG TABLET, CHEWABLE PO SCH (11:02)
[2018-12-21] MEDS: FAMOTIDINE 20 MG TABLET PO SCH (11:02)
[2018-12-21] MEDS: ENOXAPARIN SODIUM INJ 80 MG/0.8 ML DISP.SYRIN SUBCUT SCH (11:02)
[2018-12-21] MEDS ORDERED: DOCUSATE SODIUM 100 MG CAPSULE PO SCH (12:00)
[2018-12-21 16:27] VITALS: BP 110/57
--- NOTE | 2018-12-25 23:41 | DRAGON STRESS TEST REPORT ---
Exercise EKG treadmill Cardiolite stress test using SPECT. Data procedure: 12/21/2018. Ordering Physician: Dr. POLANCO. Patient Status: In the Patient. Indication:: Atypical chest pain with elevated troponin coronary risk factors:. Age, hypertension, hyperlipidemia, and family history of coronary artery disease. Significant physical findings prior to stress testing show a blood pressure of 112/67, and a heart rate of 98 beats per minute. Auscultation of the heart shows normal S1 and S2. No S3 or S4 gallops. Systolic murmur in the left sternal border and apex. Lungs are clear to auscultation and percussion. Resting 12-lead EKG:. Procedure: The patient was excised on a standard Man protocol. . The patient walked a total of 4 minutes and 13 seconds on this protocol and reached a peak heart rate of 173 beats per minute, which is 100% of maximum predicted heart rate for age. This is at a workload of METS. The test was stopped because of . The patient described no symptoms of chest pain/discomfort. : Arrhythmias seen: None. The blood pressure response was normal at peak exercise the blood pressure was 157/83 millimeters of Hg. The double product was 27.1 K. Summary of findings and interpretation: 1. No chest pain or chest discomfort symptoms reproduced. 2. [No] EKG evidence of ischemia in the form of ST segment depression. 3. Normal blood pressure response. 4. No arrhythmias seen. 5. Fair exercise tolerance, aerobic capacity. Diagnostic treadmill stress test negative for ischemia by EKG criteria. Recommendations: Correlate with nuclear Cardiolite images. Nuclear data: At rest the patient was given 13.89 millicuries of technetium 99 sestamibi, and as per protocol rest none gated SPECT images were obtained. The patient was exercised on a treadmill [see exercise physiology]. One minute prior to termination of exercise, 40.3 millicuries of technetium and there sestamibi was injected intravenously. As per protocol stress gated images were obtained. Impression: Review of images show that all segments of the myocardium had normal perfusion at rest, and normal perfusion post exercise. All segments of the myocardium had normal motion, contraction, and thickening by gated study. T. I D. ratio was[1.12. The computer read rest and stress left ventricular ejection fractions were 57 %, and 58 % respectively. . Conclusions: 1. No clinical symptoms of exercise-induced myocardial ischemia at a peak heart rate of[ beats per minute, patient having achieved []% of maximum predicted heart rate for age, at a workload of[]METS. 2. No EKG evidence of exercise-induced myocardial ischemia. 3. No arrhythmias seen. 4. Normal blood pressure response to exercise. 5.No scintigraphic evidence of exercise-induced myocardial ischemia. 6.No scintigraphic evidence of myocardial infarction/scar. Recommendations Aggressive coronary risk factor modification, and treatment of underlying comorbidities. MTDD
--- NOTE | 2018-12-27 10:53 | PDOC DISCHARGE SUMMARY ---
General - Admit/Disc Date/PCP Admission Date/Primary Care Provider: 12/19/18 10:46 Discharge Date: 12/21/18 - Discharge Diagnosis (1) Chest pain, exertional Is this a current diagnosis for this admission?: Yes (2) Dyslipidemia Is this a current diagnosis for this admission?: Yes (3) Obesity (BMI 30-39.9) Is this a current diagnosis for this admission?: Yes (4) UTI (urinary tract infection) Is this a current diagnosis for this admission?: Yes - Additional Information Resuscitation Status: Full Code Discharge Diet: As Tolerated Discharge Activity: Activity As Tolerated Prescriptions: Levofloxacin [Levaquin 500 mg Tablet] 500 mg PO DAILY 3 Days #3 tablet Amlodipine Besylate [Norvasc 5 mg Tablet] 5 mg PO DAILY 30 Days #30 tablet Home Medications: Albuterol Sulfate [Proair HFA Inhalation Aerosol 8.5 gm MDI] 1 puff IH Q6HP PRN 12/19/18 Aspirin [Adult Low Dose Aspirin EC] 81 mg PO DAILY 12/19/18 Atorvastatin Calcium [Lipitor 80 mg Tablet] 80 mg PO QHS 12/19/18 Cetirizine HCl [Zyrtec 10 mg Tablet] 10 mg PO DAILYP PRN 12/19/18 Pantoprazole Sodium [Protonix [address] Tablet] 40 mg PO QAM 12/19/18 Amlodipine Besylate [Norvasc 5 mg Tablet] 5 mg PO DAILY 30 Days #30 tablet 12/21/18 Levofloxacin [Levaquin 500 mg Tablet] 500 mg PO DAILY 3 Days #3 tablet 12/21/18 History of Present Illness History of Present Illness: CRISTINA NUNEZ is a 48 year old female past medical history of h yperlipidemia, stress-induced cardiomyopathy, asthma, presented to ED complaining of chest pain. As per patient yesterday she was at a football game walk to the parking lot, when walking back to the field developed substernal, left-sided, pressure-like, chest pain, lasting about 10 to 12 minutes, radiating to her left arm, associated with diaphoresis and nausea. When she got home she took 1 of her sublingual nitroglycerin, developed headache, went to bed. This morning when she woke up and was trying to put on her shoes she developed shortness of breath and decided to come to ED. Of note on 12/19/2015 patient presented to ED here at [facility] with troponins of 1.030, was transferred to [facility] where she underwent left heart cath and was told that her coronaries were normal and she had stress-induced cardiomyopathy likely Takotsubo. Psychometrist with Dr. Rosenberg last visit was on 12/06/2018 and she was told that everything was fine. In ED she was found to have mildly elevated troponins, ED physician had called banker mason Dr. Robbins at at [facility] who had recommended for patient to be admitted here at [facility]. On my encounter patient is comfortably resting in bed, stating that her chest pain has resolved at this point, denies any recreational drug abuse. Also denying, denies any fever, chills, nausea, vomiting, diarrhea, constipation, urinary symptoms. Hospital Course Hospital Course: (1) Chest pain, exertional Resolved. Troponins 0.2, 0.19, 0.14, 0.072 respectively. CTA negative for any PE. TSH mildly elevated, T3-T4 WNL. Admitted telemetry, aspirin, beta-blockers, high intensity statins, low mo lecular weight heparin, sublingual nitro, morphine, supplemental oxygen. Cardiology consulted. Nuclear stress test negative. Possibly due coronary vasospasm as per cardiology note. Please refer to note. Beta blockers were stopped and pt was discharged on CCB. An appointment with her banker mason arranged. 30 day even monitor was recommend as per cardiology recommendation. Asked to follow up with her banker mason or Dr Juan for 30 day event monitor placement. (2) Dyslipidemia Continue high intensity statins. (3) Obesity (BMI 30-39.9) BMI 35.0. Diet and lifestyle modification recommended. (4) UTI (urinary tract infection) On admission empirically treated for gram negativs with levfloxacin. Urine cultre post discharge came back positive for lactubacilus normal vaginal klarissa. UA positive for leukocyte esterase and WBC. discharged on two more days of p.o. levofloxacin. Physical Exam Vital Signs: Temp Pulse Resp BP Pulse Ox 98.5 F 71 18 110/57 L 100 12/21/18 16:25 12/21/18 16:25 12/21/18 16:25 12/21/18 16:25 12/21/18 16:25 General appearance: PRESENT: no acute distress, obese, well-developed, well- nourished Head exam: PRESENT: atraumatic, normocephalic Eye exam: PRESENT: conjunctiva pink, EOMI, PERRLA. ABSENT: scleral icterus Ear exam: PRESENT: normal external ear exam Mouth exam: PRESENT: moist, tongue midline Neck exam: ABSENT: carotid bruit, JVD, lymphadenopathy, thyromegaly Respiratory exam: PRESENT: clear to auscultation rivas. ABSENT: rales, rhonchi, wheezes Cardiovascular exam: PRESENT: RRR. ABSENT: diastolic murmur, rubs, systolic murmur Pulses: PRESENT: normal dorsalis pedis pul Vascular exam: PRESENT: normal capillary refill GI/Abdominal exam: PRESENT: normal bowel sounds, soft. ABSENT: distended, guarding, mass, organolmegaly, rebound, tenderness Rectal exam: PRESENT: deferred Extremities exam: PRESENT: full ROM. ABSENT: calf tenderness, clubbing, pedal edema Neurological exam: PRESENT: alert, awake, oriented to person, oriented to place, oriented to time, oriented to situation, CN II-XII grossly intact. ABSENT: motor sensory deficit Psychiatric exam: PRESENT: appropriate affect, normal mood. ABSENT: homicidal ideation, suicidal ideation Skin exam: PRESENT: dry, intact, warm. ABSENT: cyanosis, rash Results Laboratory Results: 12/21/18 05:30 12/21/18 05:30 12/19/18 12/19/18 12/19/18 07:45 07:45 11:55 Creatine Kinase 259 H CK-MB (CK-2) 1.92 Troponin I 0.209 0.192 12/19/18 12/20/18 18:15 09:20 Creatine Kinase CK-MB (CK-2) Troponin I 0.146 0.072 Impressions: Chest/Abdomen CTA 12/19/18 00:00 IMPRESSION: No acute findings. NO PULMONARY EMBOLI. Chest X-Ray 12/19/18 07:04 IMPRESSION: No acute cardiopulmonary process. Qualifiers - * PATIENT BEING DISCHARGED WITH ANY OF THE FOLLOWING DIAGNOSIS: No VTE patient discharged on overlapping Therapy?: No Acute Heart Failure - Is this a Heart Failure Patient?: No
== END 2018-12-21 17:00 | disposition home or self-care (01) ==
LOC: ER 06:42 → EH 10:46 → 4S 12:50
PROVIDERS: ADMIT Internal Medicine; ATTEND Internal Medicine
DX: R07.89 Other chest pain (principal); E78.5 Hyperlipidemia, unspecified; E66.9 Obesity, unspecified; I25.2 Old myocardial infarction; R61 Generalized hyperhidrosis; R11.0 Nausea; J45.909 Unspecified asthma, uncomplicated; R06.02 Shortness of breath; R79.89 Other specified abnormal findings of blood chemistry; N30.01 Acute cystitis with hematuria; Z79.82 Long term (current) use of aspirin; Z79.899 Other long term (current) drug therapy; Z68.35 Body mass index [BMI] 35.0-35.9, adult; Z82.49 Family history of ischemic heart disease and other diseases of the circulatory system; Z86.79 Personal history of other diseases of the circulatory system
CPT/HCPCS: 93005 ×2; 99285; 36415 ×3; 87086; 84439; 82553; 82550; 84443; 85025 ×2; 85610; 80053 ×2; 81001 ×2; 84484 ×2; 80307; 84481; 83036; 80061; 93306; 93017; 71046; 78452; 71275; 93010 ×2; G0378 ×4; A9500; S0119; J2270 ×2; J3490 ×2; J1650 ×3; Q9969

== ENCOUNTER → 2019-04-16 | Day surgery (SDC) | payer OTHER ==
[~2019-04-16] MED LIST: BUPIVACAINE HCL 0.5 % INJ/PF 30 ML SDV ONE; LIDOCAINE 1% INJ-PF (10 MG/ML) 30 ML SDV ONE; METHYLPREDNISOLONE ACETATE INJ 80 MG/1 ML VIAL ONE
--- NOTE | 2019-04-16 14:33 | RADIOLOGY REPORT (SQ) ---
EXAM DESCRIPTION: FLUORO/NEEDLE PLACEMENT; INJECT/ASPIR HIP/SHLDR/KNEE COMPLETED DATE/TIME: 04/16/2019 1:19 pm REASON FOR STUDY: (M16.11)UNILATERAL PRIMARY OSTEOARTHRITIS, RIGHT HIP M16.11 UNILATERAL PRIMARY OS TEOARTHRITIS, RIGHT HIP COMPARISON: None. FLUOROSCOPY TIME: 10 seconds. 1 images saved to PACS. LIMITATIONS: None. PROCEDURE: SITE OF INJECTION: Right hip. LOCALIZING CONTRAST TYPE AND DOSE: 1 mL Omnipaque. MEDICATION TYPE AND DOSE: 80 mg Depo-Medrol and 4 mL Sensorcaine. Using local anesthesia and sterile technique with fluoroscopic guidance, the needle was advanced into the joint. Iodinated contrast was injected to verify intraarticular placement. This was followed by therapeutic injection of the indicated medications. The needle was removed. There were no immediat e complications. Preprocedure pain level: 4/5. Postprocedure pain level: 2/5. IMPRESSION: THERAPEUTIC INJECTION OF THE RIGHT HIP JOINT ABOVE. COMMENT: Patient medication list reviewed: Yes- Quality ID# [id number]:Eligible professional attests to doc umenting in the medical record they obtained, updated, or reviewed the patient's current medications. . Quality ID 145: Final reports for procedures using fluoroscopy that document radiation exposure elaina carol, or exposure time and number of fluorographic images (if radiation exposure indices are not avail able) TECHNICAL DOCUMENTATION: JOB ID: [id number] [employer]- All Rights Reserved Reading location - IP/workstation name: [email or web address]
--- NOTE | 2019-04-16 14:33 | RADIOLOGY REPORT (SQ) ---
EXAM DESCRIPTION: FLUORO/NEEDLE PLACEMENT; INJECT/ASPIR HIP/SHLDR/KNEE COMPLETED DATE/TIME: 04/16/2019 1:19 pm REASON FOR STUDY: (M16.11)UNILATERAL PRIMARY OSTEOARTHRITIS, RIGHT HIP M16.11 UNILATERAL PRIMARY OS TEOARTHRITIS, RIGHT HIP COMPARISON: None. FLUOROSCOPY TIME: 10 seconds. 1 images saved to PACS. LIMITATIONS: None. PROCEDURE: SITE OF INJECTION: Right hip. LOCALIZING CONTRAST TYPE AND DOSE: 1 mL Omnipaque. MEDICATION TYPE AND DOSE: 80 mg Depo-Medrol and 4 mL Sensorcaine. Using local anesthesia and sterile technique with fluoroscopic guidance, the needle was advanced into the joint. Iodinated contrast was injected to verify intraarticular placement. This was followed by therapeutic injection of the indicated medications. The needle was removed. There were no immediat e complications. Preprocedure pain level: 4/5. Postprocedure pain level: 2/5. IMPRESSION: THERAPEUTIC INJECTION OF THE RIGHT HIP JOINT ABOVE. COMMENT: Patient medication list reviewed: Yes- Quality ID# [id number]:Eligible professional attests to doc umenting in the medical record they obtained, updated, or reviewed the patient's current medications. . Quality ID 145: Final reports for procedures using fluoroscopy that document radiation exposure elaina carol, or exposure time and number of fluorographic images (if radiation exposure indices are not avail able) TECHNICAL DOCUMENTATION: JOB ID: [id number] [employer]- All Rights Reserved Reading location - IP/workstation name: [email or web address]
== END ==
LOC: RAD 12:32
PROVIDERS: ATTEND Orthopaedic Surgery
DX: M16.11 Unilateral primary osteoarthritis, right hip (principal)
CPT/HCPCS: 20610; 77002; J3490 ×2; J1040

== ENCOUNTER → 2019-10-17 | Outpatient (CLI) | payer OTHER ==
[2019-10-17 11:19] LABS: ABSOLUTE EOSINOPHILS # (AUTO) 0.3 10^3/uL (0.0-0.6); ABSOLUTE LYMPHOCYTES (AUTO) 1.9 10^3/uL (0.5-4.7); ABSOLUTE MONOCYTES (AUTO) 0.4 10^3/uL (0.1-1.4); ABSOLUTE NEUT (AUTO) 1.7 10^3/uL (1.7-8.2); BASOPHILS % (AUTO) 0.9 % (0-2); EOSINOPHILS % (AUTO) 6.2 % (0-6); HEMATOCRIT 37.4 % (36.0-47.0); HEMOGLOBIN 12.3 g/dL (12.0-15.5); LYMPHOCYTES % (AUTO) 44.1 % (13-45); MEAN CORPUSCULAR HEMOGLOBIN 30.5 pg (27.0-33.4); MEAN CORPUSCULAR HGB CONC 32.8 g/dL (32.0-36.0); MEAN CORPUSCULAR VOLUME 93 fl (80-97); MONOCYTES % (AUTO) 9.7 % (3-13); PLATELET COUNT 297 10^3/uL (150-450); RED BLOOD COUNT 4.02 10^6/uL (3.72-5.28); RED CELL DISTRIBUTION WIDTH 13.6 % (11.5-14.0); SEGMENTED NEUTROPHILS % (AUTO) 39.1 % (42-78); TOTAL CELLS COUNTED % (AUTO) 100 %; WHITE BLOOD COUNT 4.4 10^3/uL (4.0-10.5)
[2019-10-17 11:39] LABS: ALBUMIN 4.1 g/dL (3.5-5.0); ALKALINE PHOSPHATASE 104 U/L (38-126); ANION GAP 7 (5-19); ASPARTATE AMINO TRANSFERASE 23 U/L (14-36); BILIRUBIN,TOTAL 0.4 mg/dL (0.2-1.3); BLOOD UREA NITROGEN 8 mg/dL (7-20); CALCIUM 9.4 mg/dL (8.4-10.2); CARBON DIOXIDE 26 mmol/L (22-30); CHLORIDE 105 mmol/L (98-107); GLUCOSE 111 mg/dL (75-110); POTASSIUM 4.8 mmol/L (3.6-5.0); TOTAL PROTEIN 7.7 g/dL (6.3-8.2)
--- NOTE | 2019-10-17 12:54 | EKG REPORT ---
SEVERITY:- NORMAL ECG - SINUS RHYTHM : Confirmed by: Sinan Pope MD 17-Oct-2019 12:54:15
== END ==
LOC: OD 10:23
PROVIDERS: ATTEND Physician Assistant
DX: I10 Essential (primary) hypertension (principal); Z11.2 Encounter for screening for other bacterial diseases
CPT/HCPCS: 36415; 80053; 85025; 87070; 93005; 93010